=== PATIENT | female | born 1960 | race Caucasian/White ===

== ENCOUNTER → 2017-01-04 | Outpatient (CLI) | payer MEDICARE, OTHER ==
--- NOTE | 2017-01-05 12:12 | MM ---
Reason for exam: screening (asymptomatic). Last mammogram was performed 1 year and 4 months ago. History: Patient is postmenopausal and is nulliparous. Physical Findings: A clinical breast exam by your physician is recommended on an annual basis and results should be correlated with mammographic findings. MG 3D Screening Mammo W/Cad Bilateral CC and MLO view(s) were taken. Prior study comparison: August 26, 2015, bilateral MG screening mammo w CAD. August 08, 2014, mammogram, performed at [facility]. The breast tissue is heterogeneously dense. This may lower the sensitivity of mammography. Developing asymmetry in the left upper outer quadrant. This finding is changed when compared with previous exams. ASSESSMENT: Incomplete: need additional imaging evaluation, BI-RAD 0 RECOMMENDATION: Special view mammogram of the left breast. If lesion persists on supplemental views, image directed ultrasound is recommended. [facility] will attempt to contact patient to return for supplemental views and ultrasound if indicated.
== END | disposition home or self-care (01) ==
LOC: RADMAMWWP 12:52
PROVIDERS: ATTEND Family Medicine
DX: Z12.31 Encounter for screening mammogram for malignant neoplasm of breast (principal); R92.2 Inconclusive mammogram
CPT/HCPCS: 77063; G0202

== ENCOUNTER → 2017-01-11 | Outpatient (CLI) | payer MEDICARE, OTHER ==
--- NOTE | 2017-01-11 11:11 | MM ---
Reason for exam: additional evaluation requested from abnormal screening. Last mammogram was performed less than 1 month ago. History: Patient is postmenopausal and is nulliparous. Physical Findings: Nurse did not find any significant physical abnormalities on exam. MG 3D Work Up W/Cad LT ML, spot compression MLO, and spot compression CC view(s) were taken of the left breast. Prior study comparison: January 04, 2017, bilateral MG 3d screening mammo w/cad. August 26, 2015, bilateral MG screening mammo w CAD. The breast tissue is heterogeneously dense. This may lower the sensitivity of mammography. Asymmetric breast tissue in the left breast 5.4cm from nipple upper half position. These results were verbally communicated with the patient and result sheet given to the patient on 01/11/17. ASSESSMENT: Incomplete: need additional imaging evaluation, BI-RAD 0 RECOMMENDATION: Ultrasound of the left breast.
--- NOTE | 2017-01-11 11:14 | USB ---
Reason for exam: additional evaluation requested from abnormal screening. History: Patient is postmenopausal and is nulliparous. US Breast Workup Limited LT Left breast ultrasound indicates ductal estasia. These results were verbally communicated with the patient and result sheet given to the patient on 01/11/17. ASSESSMENT: Negative, BI-RAD 1 RECOMMENDATION: Routine screening mammogram of both breasts in 1 year.
== END | disposition home or self-care (01) ==
LOC: RADMAMWWP 07:56
PROVIDERS: ATTEND Family Medicine
DX: R92.2 Inconclusive mammogram (principal); R92.8 Other abnormal and inconclusive findings on diagnostic imaging of breast
CPT/HCPCS: 76642; G0206; G0279

== ENCOUNTER → 2018-03-11 | Outpatient (CLI) | payer MEDICARE, OTHER ==
--- NOTE | 2018-03-12 13:50 | MM ---
Reason for exam: screening (asymptomatic). Last mammogram was performed 1 year and 2 months ago. History: Patient is postmenopausal and is nulliparous. Physical Findings: A clinical breast exam by your physician is recommended on an annual basis and results should be correlated with mammographic findings. MG 3D Screening Mammo W/Cad Bilateral CC and MLO view(s) were taken. Prior study comparison: January 11, 2017, left breast MG 3d work up w/cad LT. January 04, 2017, bilateral MG 3d screening mammo w/cad. There are scattered fibroglandular densities. No significant changes when compared with prior studies. ASSESSMENT: Benign, BI-RAD 2 RECOMMENDATION: Routine screening mammogram of both breasts in 1 year.
== END | disposition home or self-care (01) ==
LOC: RADMAMWWP 16:22
PROVIDERS: ATTEND Internal Medicine
DX: Z12.31 Encounter for screening mammogram for malignant neoplasm of breast (principal)
CPT/HCPCS: 77063; 77067

== ENCOUNTER 2019-03-21 12:31 | Emergency (ER) | payer MEDICARE, OTHER ==
[2019-03-21 12:36] VITALS: RESP 18
[2019-03-21] MEDS ORDERED: DIPH,PERTUS(ACELL)TETVAC-LF 0.5 ML VIAL IM ONE (12:49)
[2019-03-21] MEDS ORDERED: LIDOCAINE 1%-EPI 1:100,000 20 ML VIAL SQ STA (12:49)
--- NOTE | 2019-03-21 12:56 | ED ---
General Adult HPI - General Chief complaint: Wound/Laceration Stated complaint: Fall, head laceration Time Seen by Provider: 03/21/19 12:38 Source: patient Mode of arrival: ambulatory Limitations: no limitations - History of Present Illness Initial comments: Dictation was produced using [employer] dictation software. please excuse any gram matical, word or spelling errors. Chief Complaint: 59-year-old feel presents with knee pain and head pain after fall. History of Present Illness: Denies fever she was walking outside when she tripped over a twig. She fell forward striking her left anterior knee and hitting her head. Straight to get herself however was unlikely. She noted some bleeding to her head. Patient also complains of mild The ROS documented in this emergency department record has been reviewed and confirmed by me. Those systems with pertinent positive or negative responses have been documented in the HPI. All other systems are other negative and/or noncontributory. PHYSICAL EXAM: General Impression: Alert and oriented x3, not in acute distress HEENT: 2 cm laceration to the left anterior forehead, extra-ocular movements intact, pupils equal and reactive to light bilaterally, mucous membranes moist. Cardiovascular: Heart regular rate and rhythm, S1&S2 audible, no murmurs, rubs or gallops Chest: Lungs clear to auscultation bilaterally, no rhonchi, no wheeze, no rales Abdomen: Bowel sounds present, abdomen soft, non-tender, non-distended, no organomegaly Musculoskeletal: Pulses present and equal in all extremities, no peripheral edema, superficial abrasion to the left anterior knee Motor: no focal deficits noted Neurological: CN II-XII grossly intact, no focal motor or sensory deficits noted Skin: Intact with no visualized rashes Psych: Normal affect and mood ED course: 59-year-old female with head laceration and knee contusion after mechanical fall. All signs upon arrival are within acceptable limits. Basic labs obtained. Labs are unremarkable. Computed tomography scan of the head and C-spine is negative. X-rays negative. Tetanus was updated. Laceration was repaired at bedside. Please see laceration repair note. Patient reevaluated stable medical condition. Patient does not have any headache or neurologic issues. She clear for discharge patient told to come back in 3-5 days for suture removal. Temperature is discussed. Patient agreeable with discharge. - Related Data Home Medications Medication Instructions Recorded Confirmed Benazepril HCl 5 mg PO DAILY 02/01/17 03/21/19 Cholecalciferol (Vitamin D3) 5,000 units PO DAILY 02/01/17 03/21/19 [Vitamin D3] Simvastatin 80 mg PO HS 02/01/17 03/21/19 Diclofenac Sodium [Voltaren] 50 mg PO BID 03/21/19 03/21/19 Insulin Aspart [NovoLOG Flexpen] 5 units SQ DIRECTED PRN 03/21/19 03/21/19 Insulin Aspart [NovoLOG Flexpen] 18 units SQ AC-BRKFST 03/21/19 03/21/19 Insulin Degludec [Tresiba 43 units SQ QAM 03/21/19 03/21/19 Flextouch U-100] Metoprolol Tartrate 25 mg PO DAILY 03/21/19 03/21/19 buPROPion HCL [Wellbutrin XL] 300 mg PO DAILY 03/21/19 03/21/19 cloZAPine [Clozaril] 25 mg PO HS 03/21/19 03/21/19 metFORMIN HCL 1,000 mg PO BID 03/21/19 03/21/19 Allergies Allergy/AdvReac Type Severity Reaction Status Date / Time Penicillins Allergy Swelling Verified 03/21/19 13:12 Review of Systems ROS Statement: Those systems with pertinent positive or pertinent negative responses have been documented in the HPI. ROS Other: All systems not noted in ROS Statement are negative. Past Medical History Past Medical History: Diabetes Mellitus, Hypertension, Osteoarthritis (OA), Thyroid Disorder History of Any Multi-Drug Resistant Organisms: None Reported Past Surgical History: No Surgical Hx Reported Past Psychological History: Schizoaffective Disorder Smoking Status: Former smoker Past Alcohol Use History: None Reported Past Drug Use History: None Reported General Exam Limitations: no limitations Course Vital Signs 03/21/19 12:34 Temperature 98.4 F Pulse Rate 99 Respiratory 18 Rate Blood Pressure 135/78 O2 Sat by Pulse 99 Oximetry Procedures - Laceration Laceration #1 Consent Obtained: verbal consent Indication: laceration Site: scalp Description: linear (2 cm) Depth: simple, single layer Anesthetic Used: lidocaine 1%, with epi Anesthesia Technique: local infiltration Amount (mls): 2 Pre-repair: wound explored, irrigated extensively Type of Sutures: nylon Size of Sutures: 6-0 Number of Sutures: 6 Technique: simple, interrupted Patient Tolerated Procedure: well Medical Decision Making - Lab Data Result diagrams: 03/21/19 13:10 03/21/19 13:10 Lab Results 03/21/19 03/21/19 03/21/19 Range/Units 13:10 13:10 13:10 WBC 8.9 (3.8-10.6) k/uL RBC 4.17 (3.80-5.40) m/uL Hgb 12.1 (11.4-16.0) gm/dL Hct 38.9 (34.0-46.0) % MCV 93.2 (80.0-100.0) fL MCH 29.1 (25.0-35.0) pg MCHC 31.2 (31.0-37.0) g/dL RDW 14.4 (11.5-15.5) % Plt Count 301 (150-450) k/uL Neutrophils % 69 % Lymphocytes % 16 % Monocytes % 5 % Eosinophils % 8 % Basophils % 1 % Neutrophils # 6.1 (1.3-7.7) k/uL Lymphocytes # 1.4 (1.0-4.8) k/uL Monocytes # 0.5 (0-1.0) k/uL Eosinophils # 0.7 (0-0.7) k/uL Basophils # 0.0 (0-0.2) k/uL PT 10.2 (9.0-12.0) sec INR 0.9 (<1.2) APTT 23.7 (22.0-30.0) sec Sodium 140 (137-145) mmol/L Potassium 4.7 (3.5-5.1) mmol/L Chloride 104 (98-107) mmol/L Carbon Dioxide 26 (22-30) mmol/L Anion Gap 10 mmol/L BUN 34 H (7-17) mg/dL Creatinine 0.91 (0.52-1.04) mg/dL Est GFR (CKD-EPI)AfAm 80 (>60 ml/min/1.73 sqM) Est GFR (CKD-EPI)NonAf 69 (>60 ml/min/1.73 sqM) Glucose 131 H (74-99) mg/dL Calcium 9.9 (8.4-10.2) mg/dL Disposition Clinical Impression: Laceration, Knee contusion, Fall Disposition: HOME SELF-CARE Condition: Good Instructions (If sedation given, give patient instructions): Laceration (ED), Care For Your Stitches (DC) Is patient prescribed a controlled substance at d/c from ED?: No Referrals: [facility] [Primary Care Provider] - 1-2 days Time of Disposition: 13:57
[2019-03-21 13:23] LABS: Basophils % (A) 1 %; Eosinophils # (A) 0.7 k/uL (0-0.7); Eosinophils % (A) 8 %; HCT 38.9 % (34.0-46.0); HGB 12.1 gm/dL (11.4-16.0); Lymphocytes # (A) 1.4 k/uL (1.0-4.8); Lymphocytes % (A) 16 %; MCH 29.1 pg (25.0-35.0); MCHC 31.2 g/dL (31.0-37.0); MCV 93.2 fL (80.0-100.0); Mean Platelet Volume 6.5; Monocytes # (A) 0.5 k/uL (0-1.0); Monocytes % (A) 5 %; Neutrophils # (A) 6.1 k/uL (1.3-7.7); Neutrophils % (A) 69 %; Platelet Count 301 k/uL (150-450); RBC 4.17 m/uL (3.80-5.40); RDW 14.4 % (11.5-15.5); WBC 8.9 k/uL (3.8-10.6)
--- NOTE | 2019-03-21 13:30 | XR ---
EXAMINATION TYPE: XR knee 4V LT DATE OF EXAM: 03/21/2019 COMPARISON: NONE HISTORY: Pain TECHNIQUE: Four views are submitted. FINDINGS: Diffuse osteopenia with chondrocalcinosis and severe narrowing the joint spaces with hypertrophic spu rring. Vascular calcification seen. No acute fracture. IMPRESSION: 1. Severe arthropathy correlate for osteoarthritis or depositional arthropathy.
--- NOTE | 2019-03-21 13:32 | CT ---
EXAMINATION TYPE: CT brain karo wo con DATE OF EXAM: 03/21/2019 COMPARISON: None HISTORY: Fall today with Left supra orbital region. CT DLP: 1515.9 mGycm, Automated exposure control for dose reduction was used. CONTRAST: Patient injected with 0 mL of Isovue 300. CT of the brain is performed utilizing 3 mm thick sections through the posterior fossa and 3 mm thick sections through the remaining calvarium. Study is performed within 24 hours of arrival to the hospital. No abnormal hyperdensity is present to suggest an acute intracranial hemorrhage. No mass lesion is evident. No acute infarcts are evident. Ventricles and sulci are prominent for the patient age. Paranasal sinuses and mastoid air cells within the [id number] are clear. IMPRESSIONS: 1. Age-related atrophy CT cervical spine. COMPARISON: None CT of the cervical spine is performed in the axial plane at 2 mm thick sections. Reconstructed image s in the coronal, and sagittal plane are reviewed on the computer. No acute fractures are evident. Spina bifida occulta of C1 is present, normal variant. Vertebral body alignment is normal. There is diffuse disc space narrowing through the mid and lower cervical spine. Vertebral body heights are preserved. Multilevel endplate spurring is present throughout the cervical spine. Uncovertebral joint hypertrophy is present with some moderate narrowing on the left at C4-5. Endplate spurring is present with mild anterior thecal sac impression. IMPRESSIONS: 1. No acute osseous abnormality. 2. Degenerative disc changes with endplate spurring. 3. Moderate foraminal narrowing left C4-5 from uncovertebral joint hypertrophy.
[2019-03-21 13:33] LABS: INR 0.9 (<1.2); Partial Thromboplastin Time 23.7 sec (22.0-30.0); Prothrombin Time 10.2 sec (9.0-12.0)
[2019-03-21 13:42] LABS: Calcium 9.9 mg/dL (8.4-10.2); Potassium 4.7 mmol/L (3.5-5.1)
[2019-03-21 14:29] VITALS: BP 151/84; PULSE 77; TEMP 98
== END 2019-03-21 14:20 | disposition home or self-care (01) ==
LOC: EC 12:31
DX: S01.81XA Laceration without foreign body of other part of head, initial encounter (principal); S80.02XA Contusion of left knee, initial encounter; E11.9 Type 2 diabetes mellitus without complications; I10 Essential (primary) hypertension; M19.90 Unspecified osteoarthritis, unspecified site; F25.9 Schizoaffective disorder, unspecified; Z87.891 Personal history of nicotine dependence; Z88.0 Allergy status to penicillin; Z79.1 Long term (current) use of non-steroidal anti-inflammatories (NSAID); Z79.4 Long term (current) use of insulin; Z79.899 Other long term (current) drug therapy; W01.0XXA Fall on same level from slipping, tripping and stumbling without subsequent striking against object, initial encounter; Y93.01 Activity, walking, marching and hiking; Y92.480 Sidewalk as the place of occurrence of the external cause
CPT/HCPCS: 12011; 36415; 70450; 72125; 80048; 85025; 85610; 85730; 90471; 90715; 99284

== ENCOUNTER → 2020-10-18 | Outpatient (CLI) | payer MEDICARE, OTHER ==
--- NOTE | 2020-10-18 11:54 | XR ---
Cervical spine HISTORY: Neck pain 6 views of the cervical spine There is multilevel spondylosis. Cervical vertebral bodies show preserved height, alignment, bone min eralization mildly reduced. There is some mild loss of disc height present at C3-4, loss of disc heig ht also present at C6-7. C7-T1 not well seen. Prevertebral soft tissues are normal. There are facet a rthropathy changes. Oblique images show foraminal encroachment on the right at C3-4 and C6-7, C7-T1 a nd on the left at the lower levels the foramina are not well seen. Odontoid view is limited. Suspect atherosclerotic vascular calcifications in the carotid artery distribution. IMPRESSION: Degenerative disc disease and facet arthropathy.
--- NOTE | 2020-10-18 11:58 | XR ---
Left shoulder HISTORY: Pain, numbness 3 views of left shoulder Bone mineralization, joint spaces and alignment are maintained. Suspect some soft tissue calcificatio ns are present. No fracture or dislocation. Left lung apex as visualized is normal. Some mild spurrin g suspected at the glenohumeral joint. There is arthropathy at the acromioclavicular joint. IMPRESSION: There is abnormal soft tissue calcification present, correlate for hypercalcemic states, that could be calcific tendinitis, crystal deposition arthropathy
== END | disposition home or self-care (01) ==
LOC: RADXRMAIN 09:43
PROVIDERS: ATTEND Nurse Practitioner
DX: M50.30 Other cervical disc degeneration, unspecified cervical region (principal); M47.812 Spondylosis without myelopathy or radiculopathy, cervical region; M75.32 Calcific tendinitis of left shoulder; M19.012 Primary osteoarthritis, left shoulder
CPT/HCPCS: 72050

== ENCOUNTER 2021-03-24 14:40 | Inpatient (IN) | payer MEDICARE, OTHER ==
--- NOTE | 2021-03-24 16:59 | ED ---
General Adult HPI - General Chief complaint: Wound/Laceration Stated complaint: Bone Infection Time Seen by Provider: 03/24/21 16:49 Source: patient Mode of arrival: wheelchair Limitations: no limitations - History of Present Illness Initial comments: Dictation was produced using [employer] dictation software. please excuse any grammatical, word or spelling errors. Chief Complaint: 61-year-old female sent from wound care for possible os teomyelitis History of Present Illness: 61-year-old female with history of diabetic wound to her left foot. She states that she had a cast was applied by wound care clinic that was stated on for a week. He took the cast off today noticed that her left great toe looks significantly worse and erythematous. They're concerned of osteomyelitis sent her to the emergency department to be admitted. Patient complains of pain to the left toe. Denies any constitutional symptoms. The ROS documented in this emergency department record has been reviewed and confirmed by me. Those systems with pertinent positive or negative responses have been documented in the HPI. All other systems are other negative and/or noncontributory. PHYSICAL EXAM: General Impression: Alert and oriented x3, not in acute distress HEENT: Normocephalic atraumatic, extra-ocular movements intact, pupils equal and reactive to light bilaterally, mucous membranes moist. Cardiovascular: Heart regular rate and rhythm Chest: Able to complete full sentences, no retractions, no tachypnea Abdomen: abdomen soft, non-tender, non-distended, no organomegaly Musculoskeletal: Pulses present and equal in all extremities, no peripheral edema Motor: no focal deficits noted Neurological: CN II-XII grossly intact, no focal motor or sensory deficits noted Skin: Intact with no visualized rashes Left foot: Erythematous, purulent drainage coming from the tip of the left toe, palpable tenderness. Psych: Normal affect and mood ED course: 61-year-old female sent from wound care clinic for worsening infection to left toe. There does appear to be probing wound signs upon arrival are within acceptable limits. There is significant erythema to the left great toe. Labs evaluation obtained. CBC unremarkable. Metabolic panel shows BUN 33. Glucose of 41. Patient given oral glucose. Glucose levels will be monitored. Foot x-ray shows osteomyelitis. Patient started on vancomycin and cefepime. Patient be admitted with consultation to infectious disease. - Related Data Home Medications Medication Instructions Recorded Confirmed Benazepril HCl 10 mg PO HS 07/13/17 09/02/21 Diclofenac Sodium [Voltaren] 50 mg PO BID 03/21/19 03/24/21 Insulin Aspart [NovoLOG Flexpen] 5 units SQ DIRECTED PRN 03/21/19 03/24/21 Insulin Aspart [NovoLOG Flexpen] 15 units SQ AC-BRKFST 03/21/19 03/24/21 Insulin Degludec [Tresiba 40 units SQ DAILY 03/21/19 03/24/21 Flextouch U-100 Pen] Metoprolol Tartrate 25 mg PO DAILY 03/21/19 03/24/21 buPROPion HCL [Wellbutrin XL] 300 mg PO DAILY 03/21/19 03/24/21 cloZAPine [Clozaril] 25 mg PO HS 03/21/19 03/24/21 Ascorbic Acid [Vitamin C] 1,000 mg PO DAILY 03/24/21 03/24/21 Calcium Carbonate [Calcium] 600 mg PO BID 03/24/21 03/24/21 Cyanocobalamin (Vitamin B-12) 1,000 mcg PO BID 03/24/21 03/24/21 [Vitamin B-12] Multivitamins, Thera [Multivitamin 1 tab PO DAILY 03/24/21 03/24/21 (formulary)] Thiamine HCl [Vitamin B-1] 100 mg PO DAILY 03/24/21 03/24/21 Allergies Allergy/AdvReac Type Severity Reaction Status Date / Time Penicillins Allergy Swelling Verified 03/24/21 17:28 Review of Systems ROS Statement: Those systems with pertinent positive or pertinent negative responses have been documented in the HPI. ROS Other: All systems not noted in ROS Statement are negative. Past Medical History Past Medical History: Diabetes Mellitus, Hypertension, Osteoarthritis (OA), Thyroid Disorder History of Any Multi-Drug Resistant Organisms: None Reported Past Surgical History: No Surgical Hx Reported Past Psychological History: Schizoaffective Disorder, Schizophrenia Smoking Status: Never smoker Past Alcohol Use History: None Reported Past Drug Use History: None Reported General Exam Limitations: no limitations Course Vital Signs 03/24/21 03/24/21 16:29 18:32 Temperature 98.1 F 98.1 F Pulse Rate 64 69 Respiratory 18 18 Rate Blood Pressure 124/85 140/76 O2 Sat by Pulse 99 99 Oximetry Medical Decision Making - Lab Data Result diagrams: 03/24/21 18:37 03/24/21 18:37 Lab Results 03/24/21 03/24/21 03/24/21 Range/Units 18:37 18:37 18:37 WBC 9.4 (3.8-10.6) k/uL RBC 4.18 (3.80-5.40) m/uL Hgb 12.6 (11.4-16.0) gm/dL Hct 37.8 (34.0-46.0) % MCV 90.5 (80.0-100.0) fL MCH 30.2 (25.0-35.0) pg MCHC 33.4 (31.0-37.0) g/dL RDW 14.1 (11.5-15.5) % Plt Count 421 (150-450) k/uL MPV 6.2 Neutrophils % 74 % Lymphocytes % 11 % Monocytes % 6 % Eosinophils % 4 % Basophils % 1 % Neutrophils # 6.9 (1.3-7.7) k/uL Lymphocytes # 1.1 (1.0-4.8) k/uL Monocytes # 0.6 (0-1.0) k/uL Eosinophils # 0.4 (0-0.7) k/uL Basophils # 0.1 (0-0.2) k/uL Sodium 139 (137-145) mmol/L Potassium 4.6 (3.5-5.1) mmol/L Chloride 106 (98-107) mmol/L Carbon Dioxide 23 (22-30) mmol/L Anion Gap 10 mmol/L BUN 33 H (7-17) mg/dL Creatinine 0.89 (0.52-1.04) mg/dL Est GFR (CKD-EPI)AfAm 81 (>60 ml/min/1.73 sqM) Est GFR (CKD-EPI)NonAf 70 (>60 ml/min/1.73 sqM) Glucose 41 L* (74-99) mg/dL Plasma Lactic Acid Julius 1.2 (0.7-2.0) mmol/L Calcium 10.2 (8.4-10.2) mg/dL Disposition Clinical Impression: Osteomyelitis Disposition: ADMITTED IP TO THIS HOSP Condition: Fair Referrals: [facility] [Primary Care Provider] - 1-2 days
[2021-03-24 19:04] LABS: Basophils # (A) 0.1 k/uL (0-0.2); Basophils % (A) 1 %; Eosinophils # (A) 0.4 k/uL (0-0.7); Eosinophils % (A) 4 %; HCT 37.8 % (34.0-46.0); HGB 12.6 gm/dL (11.4-16.0); Lymphocytes # (A) 1.1 k/uL (1.0-4.8); Lymphocytes % (A) 11 %; MCH 30.2 pg (25.0-35.0); MCHC 33.4 g/dL (31.0-37.0); MCV 90.5 fL (80.0-100.0); Mean Platelet Volume 6.2; Monocytes # (A) 0.6 k/uL (0-1.0); Monocytes % (A) 6 %; Neutrophils # (A) 6.9 k/uL (1.3-7.7); Neutrophils % (A) 74 %; Platelet Count 421 k/uL (150-450); RBC 4.18 m/uL (3.80-5.40); RDW 14.1 % (11.5-15.5); WBC 9.4 k/uL (3.8-10.6)
[2021-03-24 19:13] LABS: Calcium 10.2 mg/dL (8.4-10.2); Potassium 4.6 mmol/L (3.5-5.1)
[2021-03-24] MEDS ORDERED: VANCOMYCIN IV PER PHARMACY 1 EACH MISC MISCELLANE PRN (19:39)
[2021-03-24] MEDS ORDERED: CEFEPIME 2 GM in SODIUM CHLORIDE 0.9% 100 ML IVPB STA (19:40)
--- NOTE | 2021-03-24 19:41 | XR ---
PROCEDURE: XR foot complete LT - 3V DATE AND TIME: 03/24/2021 7:08 PM CLINICAL INDICATION: [facility]; suspect osteomyelitis TECHNIQUE: Department protocol COMPARISON: None FINDINGS: There is no fracture or malalignment. There is marked soft tissue swelling circumferentially to the distal phalanx of the great toe. There is multifocal osteopenia involving the tuft of the distal phalanx of the great toe, features consiste nt with osteomyelitis. There is no associated soft tissue emphysema. No associated radiopaque foreign bodies. There is no radiographic evidence of involvement of the great toe interphalangeal joint. Remainder of the bones and soft tissues are unremarkable, save for multifocal moderate joint changes. IMPRESSION: Osteomyelitis involving the tuft of the distal phalanx of the great toe.
[2021-03-24] MEDS ORDERED: NALOXONE 0.4 MG/ML 1 ML VIAL IV PRN (19:44)
[2021-03-24] MEDS ORDERED: VANCOMYCIN 1,500 MG in SODIUM CHLORIDE 0.9% 250 ML IVPB STA (19:49)
[2021-03-24] MEDS: SODIUM CHLORIDE 0.9% 1,000 ML IV SCH (20:02)
[2021-03-24 20:55] LABS: Glucose,Whole Blood 101 mg/dL (75-99)
[2021-03-24] MEDS ORDERED: INSULIN ASPART (NovoLOG) 100 UNIT/ML VIAL SQ PRN (22:00)
[2021-03-24 22:04] LABS: Glucose,Whole Blood 85 mg/dL (75-99)
[2021-03-24] MEDS: lisinopriL 10 MG TAB PO SCH (23:15)
[2021-03-25 00:19] LABS: Glucose,Whole Blood 136 mg/dL (75-99)
[2021-03-25 02:08] LABS: Glucose,Whole Blood 86 mg/dL (75-99)
[2021-03-25 04:15] LABS: Glucose,Whole Blood 110 mg/dL (75-99)
[2021-03-25 05:52] LABS: Glucose,Whole Blood 88 mg/dL (75-99)
[2021-03-25 06:18] LABS: HCT 36.2 % (34.0-46.0); HGB 11.6 gm/dL (11.4-16.0); Hypochromasia Slight; MCH 29.4 pg (25.0-35.0); MCHC 31.9 g/dL (31.0-37.0); MCV 92.2 fL (80.0-100.0); Mean Platelet Volume 6.6; Platelet Count 343 k/uL (150-450); RBC 3.93 m/uL (3.80-5.40); RDW 14.4 % (11.5-15.5); WBC 7.6 k/uL (3.8-10.6)
[2021-03-25 06:39] LABS: ALT 17 U/L (4-34); AST 24 U/L (14-36); African American GFR (CKD) >90 (>60 ml/min/1.73 sqM); Albumin 3.5 g/dL (3.5-5.0); Albumin/Globulin Ratio 1.3; Alkaline Phosphatase 75 U/L (38-126); Anion Gap 6 mmol/L; Blood Urea Nitrogen 22 mg/dL (7-17); Calcium 9.5 mg/dL (8.4-10.2); Carbon Dioxide 25 mmol/L (22-30); Chloride 106 mmol/L (98-107); Globulin 2.7 g/dL; Glucose 89 mg/dL (74-99); Non-African American GFR(CKD) 86 (>60 ml/min/1.73 sqM); Potassium 5.1 mmol/L (3.5-5.1); Sodium 137 mmol/L (137-145); Total Bilirubin 0.1 mg/dL (0.2-1.3); Total Protein 6.2 g/dL (6.3-8.2)
[2021-03-25] MEDS ORDERED: INSULIN ASPART (NovoLOG) 100 UNIT/ML VIAL SQ SCH ×2 (07:30)
[2021-03-25 08:04] LABS: Glucose,Whole Blood 112 mg/dL (75-99)
[2021-03-25] MEDS: PANTOPRAZOLE 40 MG TABLET PO SCH (08:35)
[2021-03-25] MEDS: VANCOMYCIN 1,500 MG in SODIUM CHLORIDE 0.9% 250 ML IVPB SCH ×2 (08:36→21:19)
[2021-03-25] MEDS: ASCORBIC ACID 500 MG TAB PO SCH (08:38)
[2021-03-25] MEDS: buPROPion XL 300 MG TAB.ER.24H PO SCH (08:38)
[2021-03-25] MEDS: CALCIUM CARBONATE 500 MG CHEWABLE PO SCH ×2 (08:39→21:21)
[2021-03-25] MEDS: ENOXAPARIN 40 MG/0.4 ML SYRINGE SQ SCH (08:40)
[2021-03-25] MEDS: CYANOCOBALAMIN 500 MCG TAB PO SCH ×2 (08:40→21:21)
[2021-03-25] MEDS: ETODOLAC 200 MG CAPSULE PO SCH ×2 (08:41→21:20)
[2021-03-25] MEDS: METOPROLOL TARTRATE 25 MG TAB PO SCH (08:42)
[2021-03-25] MEDS: MULTIVITAMINS, THERA 1 EACH TAB PO SCH (08:43)
[2021-03-25] MEDS: THIAMINE 100 MG TAB PO SCH (08:44)
[2021-03-25] MEDS ORDERED: INSULIN DETEMIR (LEVEMIR) 100 UNIT/ML SYR SQ SCH (09:00)
[2021-03-25] MEDS: INSULIN DETEMIR (LEVEMIR) 100 UNIT/ML SYR SQ SCH (09:58)
[2021-03-25 10:10] LABS: Glucose,Whole Blood 83 mg/dL (75-99)
--- NOTE | 2021-03-25 10:39 | P.CONS ---
History of Present Illness - Reason for Consult Consult date: 03/25/21 Wound care - History of Present Illness This is a 61-year-old patient known to the wound care center who was seen yesterday in wound care and was found to have worsening of her left great toe ulceration. Patient was previously and a total contact cast which she was tolerating well. Patient had a deep tissue culture on 811 that was positive and was treated with oral antibiotics. She then had a bone culture obtained last week which was positive again. At this time we are working patient up for hyperbaric therapy but due to the worsening of the ulceration she was directed to go to the emergency department for evaluation. The wound is currently classified as a Grade 2 wound with etiology of Diabetic Wound/Ulcer of the Lower Extremity and is located on the Left,Anterior Toe Great. The wound measures 2.1cm length x 2.6cm width x 0.7cm depth; 4.288cm^2 area and 3.002cm^3 volume. There is bone, Fat Layer (Subcutaneous Tissue), and fascia exposed. There is no tunneling or undermining noted. There is a medium amount of serosanguineous drainage noted. The wound margin is thickened. There is medium (34-66%) pink gr anulation within the wound bed. There is a medium (34-66%) amount of necrotic tissue within the wound bed including Adherent Slough. The periwound skin appearance exhibited: Callus, Scarring, Erythema. The periwound skin appearance did not exhibit: Crepitus, Excoriation, Induration, Rash, Dry/Scaly, Maceration, Atrophie Jada, Cyanosis, Ecchymosis, Hemosiderin Staining, Mottled, Pallor, Rubor. The surrounding wound skin color is noted with erythema which is circumferential. Periwound temperature was noted as No Abnormality. The periwound has tenderness on palpation. Review Of Systems: Constitutional: No fever, no chills, no night sweats. No weight change. No weakness, fatigue or lethargy. No daytime sleepiness. Integumentary:reports wounds, no lesions. No rash or pruritus. No unusual bruising. No change in hair or nails. Physical exam: General Appearance: Alert, cooperative, no distress, appears stated age. Skin: See HPI all other Skin color, texture, tugor normal, no rashes or lesions. Neurologic: Alert oriented x3 Assessment: 1. Diabetic foot ulcer 2. 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 Osteomyelitis Plan: 1.Apply absorptive silver, saline moistened gauze, dry gauze, rolled gauze secured with paper tape. Change Sunday. No weightbearing to the left forefoot. 2. next Wound care appointment is March 30 at 8:30 Thank you for the consultation any questions please contact the wound care center DNP note has been reviewed and discussed with Dr. Mims and the impression and plan of care has been directed as dictated. Past Medical History Past Medical History: Diabetes Mellitus, Hypertension, Osteoarthritis (OA), Thyroid Disorder History of Any Multi-Drug Resistant Organisms: None Reported Past Surgical History: No Surgical Hx Reported Past Psychological History: Schizoaffective Disorder, Schizophrenia Smoking Status: Never smoker Past Alcohol Use History: None Reported Past Drug Use History: None Reported Medications and Allergies Home Medications Medication Instructions Recorded Confirmed Type Benazepril HCl 10 mg PO HS 02/01/17 03/24/21 History Diclofenac Sodium [Voltaren] 50 mg PO BID 03/21/19 03/24/21 History Insulin Aspart [NovoLOG Flexpen] 5 units SQ DIRECTED PRN 03/21/19 03/24/21 History Insulin Aspart [NovoLOG Flexpen] 15 units SQ AC-BRKFST 03/21/19 03/24/21 History Insulin Degludec [Tresiba 40 units SQ DAILY 03/21/19 03/24/21 History Flextouch U-100 Pen] Metoprolol Tartrate 25 mg PO DAILY 03/21/19 03/24/21 History buPROPion HCL [Wellbutrin XL] 300 mg PO DAILY 03/21/19 03/24/21 History cloZAPine [Clozaril] 25 mg PO HS 03/21/19 03/24/21 History Ascorbic Acid [Vitamin C] 1,000 mg PO DAILY 03/24/21 03/24/21 History Calcium Carbonate [Calcium] 600 mg PO BID 03/24/21 03/24/21 History Cyanocobalamin (Vitamin B-12) 1,000 mcg PO BID 03/24/21 03/24/21 History [Vitamin B-12] Multivitamins, Thera [Multivitamin 1 tab PO DAILY 03/24/21 03/24/21 History (formulary)] Thiamine HCl [Vitamin B-1] 100 mg PO DAILY 03/24/21 03/24/21 History Allergies Allergy/AdvReac Type Severity Reaction Status Date / Time Penicillins Allergy Swelling Verified 03/24/21 17:28 Physical Exam Vitals: Vital Signs Temp Pulse Pulse Resp BP BP Pulse Ox 03/25/21 07:28 98.4 F 80 16 122/75 03/25/21 07:26 98.4 F 80 16 122/75 03/25/21 06:06 98.9 F 82 18 130/74 97 03/24/21 22:05 97.3 F L 74 16 166/88 99 03/24/21 18:32 98.1 F 69 18 140/76 99 03/24/21 16:29 98.1 F 64 18 124/85 99 Intake and Output 03/24/21 03/25/21 03/25/21 22:59 06:59 14:59 Intake Total 140 Balance 140 Intake: Intake, IV Titration 140 Amount Sodium Chloride 0.9% 1, 140 000 ml @ 20 mls/hr IV . Q24H [facility] Rx#:[id number] Other: Voiding Method Toilet # Voids 2 1 Weight 89.358 kg Results CBC & Chem 7: 03/25/21 05:44 03/25/21 05:44 Labs: Abnormal Lab Results - Last 24 Hours (Table) 03/24/21 03/24/21 03/25/21 Range/Units 18:37 20:53 00:16 BUN 33 H (7-17) mg/dL Glucose 41 L* (74-99) mg/dL POC Glucose (mg/dL) 101 H 136 H (75-99) mg/dL Total Bilirubin (0.2-1.3) mg/dL Total Protein (6.3-8.2) g/dL 03/25/21 03/25/21 03/25/21 Range/Units 04:14 05:44 07:58 BUN 22 H (7-17) mg/dL Glucose (74-99) mg/dL POC Glucose (mg/dL) 110 H 112 H (75-99) mg/dL Total Bilirubin 0.1 L (0.2-1.3) mg/dL Total Protein 6.2 L (6.3-8.2) g/dL Assessment and Plan (1) Diabetic foot ulcer Current Visit: Yes Status: Acute Code(s): E11.621 - TYPE 2 DIABETES MELLITUS WITH FOOT ULCER; L97.509 - NON-PRESSURE CHRONIC ULCER OTH PRT UNSP FOOT W UNSP SEVERITY SNOMED Code(s): 586102907 (2) Non-pressure chronic ulcer of other part of left foot with necrosis of bone Current Visit: Yes Status: Acute Code(s): L97.524 - NON-PRS CHRONIC ULCER OTH PRT LEFT FOOT W NECROSIS OF BONE SNOMED Code(s): 513836650 (3) Osteomyelitis Current Visit: Yes Status: Acute Code(s): M86.9 - OSTEOMYELITIS, UNSPECIFIED SNOMED Code(s): 44283361
[2021-03-25 12:19] LABS: Glucose,Whole Blood 145 mg/dL (75-99)
[2021-03-25] MEDS: INSULIN ASPART (NovoLOG) 100 UNIT/ML VIAL SQ SCH ×3 (12:23→21:20)
--- NOTE | 2021-03-25 14:08 | P.HPIM ---
History of Present Illness H&P Date: 03/25/21 HISTORY OF PRESENT ILLNESS This is a 61-year-[facility] with past medical history of diabetes mellitus type 2 insulin requiring, hypertension, depression, schizoaffective disorder. Patient has been following with the wound healing center regarding nonhealing wound to the left foot, diabetic ulcer. Patient states that she has a cast placed on each week and when she went back on she was noted to have had the cast rubbing on her left great toe and she was slowly sent to the emergency center for further evaluation and treatment with concern for osteomyelitis. Patient was found to be afebrile. Vital signs otherwise stable. CBC unremarkable. Electrolytes normal, BUN 33 creatinine 0.89. Blood sugar was 41 lactic acid 1.2. Foot x-ray showed osteomyelitis is involving the distal phalanx of the great toe this is on the left foot area and patient admitted to the [facility] floor, consult with Dr. Cooper. Patient is currently on vancomycin and received 1 dose of cefepime in the emergency center. Wound cultures to be obtained. She gives history of having IV antibiotics in 2009, details unknown. REVIEW OF SYSTEMS Constitutional: No fever, no chills, no night sweats. No weight change. No weakness, fatigue or lethargy. No daytime sleepiness. EENT: No headache. No blurred vision or double vision, no loss of vision. No loss of Hearing, no ringing in the ears, no dizziness. No nasal drainage or c ongestion. No epistaxis. No sore throat. Lungs: No shortness of breath, cough, no sputum production. No wheezing. Cardiovascular: No chest pain, no lower extremity edema. No palpitations. No paroxysmal nocturnal dyspnea. No orthopnea. No lightheadedness or dizziness. No syncopal episodes. Abdominal: No abdominal pain. No nausea, vomiting. No diarrhea. No constipation. No bloody or tarry stools.. No loss of appetite. Genitourinary: No dysuria, increased frequency, urgency. No urinary retention. Musculoskeletal: No myalgias. No muscle weakness, no gait dysfunction, no frequent falls. No back pain. No neck pain. Integumentary: Reported wounds, no lesions. No rash or pruritus. No unusual bruising. No change in hair or nails. Neurologic: No aphasia. No facial droop. No change in mentation. No head injury. No headache. No paralysis. No paresthesia. Psychiatric: No depression. No anxiety. No mood swings. Endocrine: Noted abnormal blood sugars. No weight change. No excessive sweating or thirst. No cold intolerance. SOCIAL HISTORY Patient is a lifelong nonsmoker, no illicit drug use, no alcohol use, no marijuana use. FAMILY HISTORY Mother is alive at age 82 with no major medical problems. Father at age 90 from old age. Patient has 2 brothers and 1 sister with no major medical problems. Patient does not have any children. PHYSICAL EXAMINATION Gen: This is a 61-year-old female. Patient is resting in bed appears to be comfortable and in no acute distress HEENT: Head is atraumatic, normocephalic. Pupils equal, round. Sclerae is anicteric. NECK: Supple. No JVD. No lymphadenopathy. No thyromegaly. LUNGS: Clear to auscultation. No wheezes or rhonchi. No intercostal retractions. HEART: Regular rate and rhythm. No murmur. ABDOMEN: Soft. Bowel sounds are present. No masses. No tenderness. EXTREMITIES: No pedal edema. No calf tenderness. NEUROLOGICAL: Patient is awake, alert and oriented x3. Cranial nerves 2 through 12 are grossly intact. ASSESSMENT AND PLAN 1. Diabetic foot wound to the left great toe with osteomyelitis. Consult with wound center for wound care, Dr. Cooper for antibiotics. Patient is currently on vancomycin. Recent wound culture was positive for MSSA. Repeat wound aerobic and anaerobic cultures to be obtained. 2. Diabetes mellitus type 2, uncontrolled with hypoglycemia. Patient's home dose of Levemir decreased to 30 units daily, scheduled NovoLog discontinued and continue NovoLog scale. 3. Hypertension. Continue lisinopril 10 mg daily, Lopressor 25 mg daily. 4. Recurrent depression, schizoaffective disorder. Continue Wellbutrin XL 300 mg daily, clozapine and 25 mg at bedtime. 5. GI prophylaxis. Protonix. 6. DVT prophylaxis. Lovenox subcu. Patient will be admitted to the hospital for a minimum of 2 night stay. DISCHARGE PLAN To be determined. Patient will require IV antibiotics at discharge. Impression and plan of care have been directed as dictated by the signing physician. Shantel Reynoso nurse practitioner acting as scribe for signing physician. Past Medical History Past Medical History: Diabetes Mellitus, Hypertension, Osteoarthritis (OA), Thyroid Disorder History of Any Multi-Drug Resistant Organisms: None Reported Past Surgical History: No Surgical Hx Reported Past Psychological History: Schizoaffective Disorder, Schizophrenia Smoking Status: Never smoker Past Alcohol Use History: None Reported Past Drug Use History: None Reported Medications and Allergies Home Medications Medication Instructions Recorded Confirmed Type Benazepril HCl 10 mg PO HS 02/01/17 03/24/21 History Diclofenac Sodium [Voltaren] 50 mg PO BID 03/21/19 03/24/21 History Insulin Aspart [NovoLOG Flexpen] 5 units SQ DIRECTED PRN 03/21/19 03/24/21 History Insulin Aspart [NovoLOG Flexpen] 15 units SQ AC-BRKFST 03/21/19 03/24/21 History Insulin Degludec [Tresiba 40 units SQ DAILY 03/21/19 03/24/21 History Flextouch U-100 Pen] Metoprolol Tartrate 25 mg PO DAILY 03/21/19 03/24/21 History buPROPion HCL [Wellbutrin XL] 300 mg PO DAILY 03/21/19 03/24/21 History cloZAPine [Clozaril] 25 mg PO HS 03/21/19 03/24/21 History Ascorbic Acid [Vitamin C] 1,000 mg PO DAILY 03/24/21 03/24/21 History Calcium Carbonate [Calcium] 600 mg PO BID 03/24/21 03/24/21 History Cyanocobalamin (Vitamin B-12) 1,000 mcg PO BID 03/24/21 03/24/21 History [Vitamin B-12] Multivitamins, Thera [Multivitamin 1 tab PO DAILY 03/24/21 03/24/21 History (formulary)] Thiamine HCl [Vitamin B-1] 100 mg PO DAILY 03/24/21 03/24/21 History Allergies Allergy/AdvReac Type Severity Reaction Status Date / Time Penicillins Allergy Swelling Verified 03/24/21 17:28 Physical Exam Vitals: Vital Signs Temp Pulse Pulse Resp BP BP Pulse Ox 03/25/21 07:28 98.4 F 80 16 122/75 03/25/21 07:26 98.4 F 80 16 122/75 03/25/21 06:06 98.9 F 82 18 130/74 97 03/24/21 22:05 97.3 F L 74 16 166/88 99 03/24/21 18:32 98.1 F 69 18 140/76 99 03/24/21 16:29 98.1 F 64 18 124/85 99 Intake and Output 03/24/21 03/25/21 03/25/21 22:59 06:59 14:59 Intake Total 140 Balance 140 Intake: Intake, IV Titration 140 Amount Sodium Chloride 0.9% 1, 140 000 ml @ 20 mls/hr IV . Q24H [facility] Rx#:[id number] Other: # Voids 2 1 Weight 89.358 kg Results CBC & Chem 7: 03/25/21 05:44 03/25/21 05:44 Labs: Abnormal Lab Results - Last 24 Hours (Table) 03/24/21 03/24/21 03/25/21 Range/Units 18:37 20:53 00:16 BUN 33 H (7-17) mg/dL Glucose 41 L* (74-99) mg/dL POC Glucose (mg/dL) 101 H 136 H (75-99) mg/dL Total Bilirubin (0.2-1.3) mg/dL Total Protein (6.3-8.2) g/dL 03/25/21 03/25/21 03/25/21 Range/Units 04:14 05:44 07:58 BUN 22 H (7-17) mg/dL Glucose (74-99) mg/dL POC Glucose (mg/dL) 110 H 112 H (75-99) mg/dL Total Bilirubin 0.1 L (0.2-1.3) mg/dL Total Protein 6.2 L (6.3-8.2) g/dL Thrombosis Risk Factor Assmnt - Choose All That Apply Any of the Below Risk Factors Present?: Yes Each Factor Represents 1 point: Obesity (BMI >25) Other Risk Factors: Yes Each Risk Factor Represents 2 Points: Age 61-74 years Thrombosis Risk Factor Assessment Total Risk Factor Score: 3 Thrombosis Risk Factor Assessment Level: Moderate Risk
[2021-03-25 14:43] LABS: Glucose,Whole Blood 109 mg/dL (75-99)
[2021-03-25 17:07] LABS: Glucose,Whole Blood 112 mg/dL (75-99)
[2021-03-25] MEDS ORDERED: cloZAPine 25 MG TAB PO SCH (21:00)
[2021-03-25] MEDS ORDERED: lisinopriL 10 MG TAB PO SCH (21:00)
[2021-03-25 21:15] LABS: Glucose,Whole Blood 147 mg/dL (75-99)
[2021-03-25] MEDS: cloZAPine 25 MG TAB PO SCH (21:21)
[2021-03-25] MEDS: lisinopriL 10 MG TAB PO SCH (21:21)
--- NOTE | 2021-03-25 22:35 | P.CONS ---
History of Present Illness - Reason for Consult Consult date: 03/25/21 left big toe osteomyelitis Requesting physician: Hernan Couch - Chief Complaint left big toe pain and worsenig wound x days - History of Present Illness History of present illness : Patient is a 61-year-old female who apparently did have injury to the right big toe tip few weeks ago with subsequent developing an ulcer on the tip of her left big toe for the patient has been initially evaluated by her career development counselor subsequently referred to the wound care center and has been under the care of Dr. Verde patient did have a culture was done on 02 March which grew MSSA Enterobacter and stenotrophomonas patient not sure Tracy bite she received for it and recently did have a repeat culture done on 16 March which is positive for MSSA patient local wound care has been total contact cast over the last few weeks patient mentions last time the cast was placed on she was having a lot of pain to the left big toe describing the pain to be throbbing to sharp 6-7 out of 10 and no radiation and when the cast was taken off her left big toe was swollen right and significant amount of infection for the patient was sent to [facility] ER on arrival to the ER the patient was afebrile patient did have a normal white count patient did have a x-rays of the left big toe which did shows osteomyelitis involving the tuft of the distal phalanx of the great toe patient has been started on vancomycin and admitted to hospital infectious disease was consulted for further management of antibiotic therapy Review of system: CONSTITUTIONAL: Positive for weakness however denies high-grade fever. EYES: No complaint. ENT: No complaint. RESPIRATORY: No complaint. CARDIOVASCULAR: No complaint. GENITOURINARY: No complaint. GASTROINTESTINAL: No complaint. MUSCULOSKELETAL: As per history of present illness. INTEGUMENTARY: As per history of present illness. PSYCHOLOGIC: No complaint. ENDOCRINE: No complaint. NEUROLOGIC: No complaint. Past medical history : Reviewed, documented below Past surgical history : Reviewed, documented below Social history: Reviewed, documented below Medications: Reviewed, as documented below GENERAL DESCRIPTION: Middle-aged female up in the chair, no distress. No tachypnea or accessory muscle of respiration use. HEENT: Shows Pallor , no scleral icterus. Oral mucous membrane is dry. NECK: Trachea central, no thyromegaly. LUNGS: Unlabored breathing. Clear to auscultation anteriorly. No wheeze or crackle. HEART: S1, S2, regular rate and rhythm. ABDOMEN: Soft, no tenderness , guarding or rigidity EXTREMITIES: No edema of feet. Left big toe tip did have a wound with slough tissue with significant surrounding swelling redness and drainage SKIN: No rash, no masses palpable. NEUROLOGICAL: The patient is awake, alert, oriented x3, mood and affect normal. LABS AND RADIOLOGY: Reviewed results see below Assessment : 1-Patient with her left big toe diabetic foot infection which started as a trauma now with worsening after the total contact cast application recent cultures were positive for MSSA and could be the likely pathogen with concern for osteomyelitis on the basis of the plain films, patient will need surgical debridement and deep cultures and antibiotic on the basis of those culture 2-penicillin allergy that would limit the number of antibiotics safe to use Plan: 1-we will obtain vascular surgery consult with Dr. Daniel for debridement of the wound and deep cultures 2-vancomycin pharmacy to dose her with a target trough of 15 while watching her kidney function and Vanco trough closely. 3-check a sed rate and a CRP We will follow on clinical condition and cultures to further adjust medication if needed Thank you for this consultation we will follow the patient along with you Past Medical History Past Medical History: Diabetes Mellitus, Hypertension, Osteoarthritis (OA), Thyroid Disorder History of Any Multi-Drug Resistant Organisms: None Reported Past Surgical History: No Surgical Hx Reported Past Psychological History: Schizoaffective Disorder, Schizophrenia Smoking Status: Never smoker Past Alcohol Use History: None Reported Past Drug Use History: None Reported Medications and Allergies Home Medications Medication Instructions Recorded Confirmed Type Benazepril HCl 10 mg PO HS 02/01/17 03/24/21 History Diclofenac Sodium [Voltaren] 50 mg PO BID 03/21/19 03/24/21 History Insulin Aspart [NovoLOG Flexpen] 5 units SQ DIRECTED PRN 03/21/19 03/24/21 History Insulin Aspart [NovoLOG Flexpen] 15 units SQ AC-BRKFST 03/21/19 03/24/21 History Insulin Degludec [Tresiba 40 units SQ DAILY 03/21/19 03/24/21 History Flextouch U-100 Pen] Metoprolol Tartrate 25 mg PO DAILY 03/21/19 03/24/21 History buPROPion HCL [Wellbutrin XL] 300 mg PO DAILY 03/21/19 03/24/21 History cloZAPine [Clozaril] 25 mg PO HS 03/21/19 03/24/21 History Ascorbic Acid [Vitamin C] 1,000 mg PO DAILY 03/24/21 03/24/21 History Calcium Carbonate [Calcium] 600 mg PO BID 03/24/21 03/24/21 History Cyanocobalamin (Vitamin B-12) 1,000 mcg PO BID 03/24/21 03/24/21 History [Vitamin B-12] Multivitamins, Thera [Multivitamin 1 tab PO DAILY 03/24/21 03/24/21 History (formulary)] Thiamine HCl [Vitamin B-1] 100 mg PO DAILY 03/24/21 03/24/21 History Allergies Allergy/AdvReac Type Severity Reaction Status Date / Time Penicillins Allergy Swelling Verified 03/24/21 17:28 Physical Exam Vitals: Vital Signs Temp Pulse Resp BP Pulse Ox 03/25/21 12:13 98.1 F 100 15 123/74 03/25/21 07:28 98.4 F 80 16 122/75 03/25/21 07:26 98.4 F 80 16 122/75 03/25/21 06:06 98.9 F 82 18 130/74 97 03/24/21 22:05 97.3 F L 74 16 166/88 99 Intake and Output 03/25/21 03/25/21 03/25/21 06:59 14:59 22:59 Intake Total 140 Balance 140 Intake: Intake, IV Titration 140 Amount Sodium Chloride 0.9% 1, 140 000 ml @ 20 mls/hr IV . Q24H [facility] Rx#:[id number] Other: Voiding Method Toilet # Voids 2 1 2 Results CBC & Chem 7: 03/25/21 05:44 03/25/21 05:44 Labs: Abnormal Lab Results - Last 24 Hours (Table) 03/25/21 03/25/21 03/25/21 Range/Units 00:16 04:14 05:44 BUN 22 H (7-17) mg/dL POC Glucose (mg/dL) 136 H 110 H (75-99) mg/dL Total Bilirubin 0.1 L (0.2-1.3) mg/dL Total Protein 6.2 L (6.3-8.2) g/dL 03/25/21 03/25/21 03/25/21 Range/Units 07:58 12:17 14:42 BUN (7-17) mg/dL POC Glucose (mg/dL) 112 H 145 H 109 H (75-99) mg/dL Total Bilirubin (0.2-1.3) mg/dL Total Protein (6.3-8.2) g/dL 03/25/21 03/25/21 Range/Units 17:04 21:13 BUN (7-17) mg/dL POC Glucose (mg/dL) 112 H 147 H (75-99) mg/dL Total Bilirubin (0.2-1.3) mg/dL Total Protein (6.3-8.2) g/dL Microbiology - Last 24 Hours (Table) 03/24/21 18:51 Blood Culture - Preliminary Blood No Growth after 24 hours
[2021-03-26] MEDS: SODIUM CHLORIDE 0.9% 1,000 ML IV SCH ×2 (05:25→12:39)
[2021-03-26 07:38] LABS: Glucose,Whole Blood 107 mg/dL (75-99)
[2021-03-26] MEDS: INSULIN ASPART (NovoLOG) 100 UNIT/ML VIAL SQ SCH ×4 (07:48→21:34)
[2021-03-26] MEDS ORDERED: LIDOCAINE 1% INJ 10MG/ML (20 ML MDV) SQ ONE (07:50)
[2021-03-26 08:25] LABS: C Reactive Protein 2.8 mg/dL (<1.0)
[2021-03-26] MEDS: VANCOMYCIN 1,500 MG in SODIUM CHLORIDE 0.9% 250 ML IVPB SCH ×2 (08:38→21:35)
[2021-03-26] MEDS: ENOXAPARIN 40 MG/0.4 ML SYRINGE SQ SCH (08:39)
[2021-03-26] MEDS: PANTOPRAZOLE 40 MG TABLET PO SCH (08:39)
[2021-03-26] MEDS: CYANOCOBALAMIN 500 MCG TAB PO SCH ×2 (08:39→21:35)
[2021-03-26] MEDS: INSULIN DETEMIR (LEVEMIR) 100 UNIT/ML SYR SQ SCH (08:39)
[2021-03-26] MEDS: THIAMINE 100 MG TAB PO SCH (08:39)
[2021-03-26] MEDS: ASCORBIC ACID 500 MG TAB PO SCH (08:39)
[2021-03-26] MEDS: METOPROLOL TARTRATE 25 MG TAB PO SCH (08:39)
[2021-03-26] MEDS: MULTIVITAMINS, THERA 1 EACH TAB PO SCH (08:40)
[2021-03-26] MEDS: ETODOLAC 200 MG CAPSULE PO SCH ×2 (08:40→21:34)
[2021-03-26] MEDS: CALCIUM CARBONATE 500 MG CHEWABLE PO SCH ×2 (08:40→21:34)
[2021-03-26] MEDS: buPROPion XL 300 MG TAB.ER.24H PO SCH (08:41)
[2021-03-26] MEDS: COLLAGENASE 250 UNIT/GM OINTMENT 30 GM TUBE TOPICAL SCH (10:08)
--- NOTE | 2021-03-26 11:39 | CONS ---
CONSULTATION This is a 61-year-old female. She came from the wound center with history of cast placed on the left foot big toe, which was infected. The patient was sent to the ER for further management. The patient has a history of diabetes and patient has been growing MRSA and Streptococcus Enterobacter, under care of Infectious Disease for IV antibiotic. I was consulted for wound debridement and deep culture. X-ray of the foot shows osteomyelitis of the left distal phalanx of the big toe. PHYSICAL EXAMINATION: Patient was seen in his room. NECK: Supple. No bruit appreciated. CHEST: Clear to auscultation. First and second sounds normal. ABDOMEN: Soft. Femoral and dorsal pedis is palpable. The left foot big toe has redness and open wound of the distal big toe phalanx and there was some necrotic tissue present. PLAN: We will do the wound debridement and send the deep culture for culture and sensitivity. Follow up with you. Thank you for this consultation. MMODL / IJN: [id number] /
--- NOTE | 2021-03-26 11:54 | OP ---
OPERATIVE REPORT PREOP DIAGNOSIS: Infected wound, left foot big toe POSTOP DIAGNOSIS: Infected wound, left foot big toe. OPERATION: Debridement of the wound, left foot big toe measurement is 3 x 3 cm, post debridement is 3 x 3 x 0.5. PROCEDURE: This patient was seen in the room. This patient had a total leg cast for wound on the big toe, got infected. The patient was admitted she has history of diabetes. Left foot was prepped and drapes applied in usual sterile manner. 1% lidocaine was infiltrated. Using a knife, we did the debridement of the big toe down to subcutaneous tissue and all the devitalized tissue was excised with knife. The tissue was sent for culture and sensitivity. There was some bleeding points which was controlled with hand cautery. Santyl cream applied to the wound and dressing was applied. Patient tolerated the procedure well. PLAN: Change the dressing daily with Santyl cream and also we noted there was marked redness of the big toe. MMODL / IJN: [id number] /
[2021-03-26 11:58] LABS: Glucose,Whole Blood 139 mg/dL (75-99)
--- NOTE | 2021-03-26 15:06 | P.PN ---
Subjective Progress Note Date: 03/26/21 HISTORY OF PRESENT ILLNESS This is a 61-year-old female patient at [facility] with past medical history of diabetes mellitus type 2 insulin requiring, hypertension, depression, schizoaffective disorder. Patient has been following with the wound healing center regarding nonhealing wound to the left foot, diabetic ulcer. Patient states that she has a cast placed on each week and when she went back on she was noted to have had the cast rubbing on her left great toe and she was slowly sent to the emergency center for further evaluation and treatment with concern for osteomyelitis. Patient was found to be afebrile. Vital signs otherwise stable. CBC unremarkable. Electrolytes normal, BUN 33 creatinine 0.89. Blood sugar was 41 lactic acid 1.2. Foot x-ray showed osteomyelitis is involving the distal phalanx of the great toe this is on the left foot area and patient admitted to the [facility], consult with Dr. Cooper. Patient is currently on vancomycin and received 1 dose of cefepime in the emergency center. Wound cultures to be obtained. She gives history of having IV antibiotics in 2009, details unknown. 03/26: Patient's doing okay, she has had debridement by Dr. Daniel today, patient remains on vancomycin, intraoperative cultures were done of the left toe patient denies any nausea vomiting, blood sugars is better, within 1 or 7-147 pre-p randials, no fever no chills, CRP is elevated, no new medications from Dr. Cooper. Maintained on IV Vanco REVIEW OF SYSTEMS Constitutional: No fever, no chills, no night sweats. No weight change. No weakness, fatigue or lethargy. No daytime sleepiness. EENT: No headache. No blurred vision or double vision, no loss of vision. No loss of Hearing, no ringing in the ears, no dizziness. No nasal drainage or congestion. No epistaxis. No sore throat. Lungs: No shortness of breath, cough, no sputum production. No wheezing. Cardiovascular: No chest pain, no lower extremity edema. No palpitations. No paroxysmal nocturnal dyspnea. No orthopnea. No lightheadedness or dizziness. No syncopal episodes. Abdominal: No abdominal pain. No nausea, vomiting. No diarrhea. No constipation. No bloody or tarry stools.. No loss of appetite. Genitourinary: No dysuria, increased frequency, urgency. No urinary retention. Musculoskeletal: No myalgias. No muscle weakness, no gait dysfunction, no frequent falls. No back pain. No neck pain. Integumentary: Reported wounds, no lesions. No rash or pruritus. No unusual bruising. No change in hair or nails. Neurologic: No aphasia. No facial droop. No change in mentation. No head injury. No headache. No paralysis. No paresthesia. Psychiatric: No depression. No anxiety. No mood swings. Endocrine: Noted abnormal blood sugars. No weight change. No excessive sweating or thirst. No cold intolerance. Objective - Vital Signs Vital signs: Vital Signs Temp 98.2 F 03/26/21 12:28 Pulse 73 03/26/21 12:28 Resp 17 03/26/21 12:28 BP 134/77 03/26/21 12:28 Pulse Ox 96 03/26/21 12:28 Intake & Output 03/25/21 03/26/21 03/26/21 18:59 06:59 18:59 Intake Total 200 Balance 200 Intake: Oral 200 Other: Voiding Method Toilet Toilet Toilet # Voids 2 1 - Constitutional General appearance: Present: cooperative, no acute distress - EENT Eyes: Present: EOMI, PERRLA, dentition normal - Respiratory Respiratory: bilateral: CTA, negative: diminished - Cardiovascular Rhythm: regular Heart sounds: normal: S1, S2 Abnormal Heart Sounds: Absent: systolic murmur, diastolic murmur, rub, S3 Gallop, S4 Gallop, click, other - Integumentary Integumentary Comment(s): Platelet talk, but also, surgically stress, status post debridement Integumentary: Present: cellulitis, normal - Neurologic Neurologic: Present: CNII-XII intact - Musculoskeletal Musculoskeletal: Present: gait normal - Psychiatric Psychiatric: Present: A&O x's 3, appropriate affect, intact judgment & insight - Labs CBC & Chem 7: 03/25/21 05:44 03/26/21 07:13 Labs: Abnormal Lab Results - Last 24 Hours (Table) 03/25/21 03/25/21 03/25/21 Range/Units 14:42 17:04 21:13 POC Glucose (mg/dL) 109 H 112 H 147 H (75-99) mg/dL C-Reactive Protein (<1.0) mg/dL 03/26/21 03/26/21 03/26/21 Range/Units 07:13 07:26 11:57 POC Glucose (mg/dL) 107 H 139 H (75-99) mg/dL C-Reactive Protein 2.8 H (<1.0) mg/dL Microbiology - Last 24 Hours (Table) 03/24/21 18:51 Blood Culture - Preliminary Blood No Growth after 24 hours Assessment and Plan Plan: 1. Diabetic foot wound to the left great toe with osteomyelitis. For debridement 03/26/2021, with intraoperative cultures, Dr. andujar Consult with wound center for wound care, Dr. Cooper for antibiotics. Patient is currently on vancomycin. Recent wound culture was positive for MSSA. Repeat wound aerobic and anaerobic cultures to be obtained. 2. Diabetes mellitus type 2, uncontrolled with hypoglycemia. Patient's home dose of Levemir decreased to 30 units daily, scheduled NovoLog discontinued and continue NovoLog scale. 3. Hypertension. Continue lisinopril 10 mg daily, Lopressor 25 mg daily. 4. Recurrent depression, schizoaffective disorder. Continue Wellbutrin XL 300 mg daily, clozapine and 25 mg at bedtime. 5. GI prophylaxis. Protonix. 6. DVT prophylaxis. Lovenox subcu. Patient will be admitted to the hospital for a minimum of 2 night stay. DISCHARGE PLAN To be determined. Patient will require IV antibiotics at discharge.
[2021-03-26 17:13] LABS: Glucose,Whole Blood 107 mg/dL (75-99)
--- NOTE | 2021-03-26 19:13 | PN ---
PROGRESS NOTE DATE OF SERVICE: 03/26/2021 REASON FOR FOLLOWUP: Left big toe diabetic foot infection with underlying osteomyelitis. INTERVAL HISTORY: The patient is afebrile. The patient status post debridement of her left big toe wound. The patient tolerated the procedure. Pain is currently controlled. No chest pain, shortness of breath or cough. No abdominal pain or diarrhea. PHYSICAL EXAMINATION: Blood pressure 134/77, pulse of 73, temperature 98.2. She is 92% on room air. General description is a middle-aged female lying in bed in no distress. Respiratory system: Unlabored breathing, clear to auscultation anteriorly. Heart S1, S2. Regular rate and rhythm. Abdomen soft, no tenderness. Left foot is currently dressed, no drainage on the dressing. LABS: Creatinine 0.82. DIAGNOSTIC IMPRESSION AND PLAN: Patient with left big toe wet gangrene and osteomyelitis status post debridement. Culture has been obtained, those will be followed. The patient is covered with vancomycin, to continue while waiting for the culture to finalize and monitor clinical course closely. Continue supportive care. MMODL / IJN: [id number] /
[2021-03-26 20:34] LABS: Glucose,Whole Blood 138 mg/dL (75-99)
[2021-03-26] MEDS: cloZAPine 25 MG TAB PO SCH (21:34)
[2021-03-26] MEDS: lisinopriL 10 MG TAB PO SCH (21:35)
[2021-03-27] MEDS ORDERED: VANCOMYCIN TROUGH DUE 1 EACH MISC MISCELLANE ONE (07:00)
[2021-03-27 07:26] LABS: Glucose,Whole Blood 108 mg/dL (75-99)
[2021-03-27] MEDS: INSULIN ASPART (NovoLOG) 100 UNIT/ML VIAL SQ SCH ×4 (07:28→21:07)
[2021-03-27] MEDS: SODIUM CHLORIDE 0.9% 1,000 ML IV SCH (07:46)
[2021-03-27] MEDS: ENOXAPARIN 40 MG/0.4 ML SYRINGE SQ SCH (08:39)
[2021-03-27] MEDS: COLLAGENASE 250 UNIT/GM OINTMENT 30 GM TUBE TOPICAL SCH (08:39)
[2021-03-27] MEDS: INSULIN DETEMIR (LEVEMIR) 100 UNIT/ML SYR SQ SCH (08:39)
[2021-03-27] MEDS: VANCOMYCIN 1,250 MG in SODIUM CHLORIDE 0.9% 250 ML IVPB SCH ×2 (08:39→21:06)
[2021-03-27] MEDS: ASCORBIC ACID 500 MG TAB PO SCH (08:44)
[2021-03-27] MEDS: CYANOCOBALAMIN 500 MCG TAB PO SCH ×2 (08:44→21:09)
[2021-03-27] MEDS: THIAMINE 100 MG TAB PO SCH (08:44)
[2021-03-27] MEDS: CALCIUM CARBONATE 500 MG CHEWABLE PO SCH ×2 (08:44→21:09)
[2021-03-27] MEDS: MULTIVITAMINS, THERA 1 EACH TAB PO SCH (08:44)
[2021-03-27] MEDS: ETODOLAC 200 MG CAPSULE PO SCH ×2 (08:44→21:09)
[2021-03-27] MEDS: METOPROLOL TARTRATE 25 MG TAB PO SCH (08:44)
[2021-03-27] MEDS: buPROPion XL 300 MG TAB.ER.24H PO SCH (08:45)
[2021-03-27] MEDS: PANTOPRAZOLE 40 MG TABLET PO SCH (08:45)
--- NOTE | 2021-03-27 11:17 | P.PN ---
Progress Note - Text 61-year-old white female, patient had a left big toe debridement done we been doing the local wound care the culture is pending patient is under care of infectious disease today we have changed the dressing we'll start using Santyl cream change her dressing with the Sentell cream daily follow with you
[2021-03-27 11:42] LABS: Glucose,Whole Blood 165 mg/dL (75-99)
--- NOTE | 2021-03-27 13:46 | P.PN ---
Subjective Progress Note Date: 03/27/21 HISTORY OF PRESENT ILLNESS This is a 61-year-old female patient at [facility] with past medical history of diabetes mellitus type 2 insulin requiring, hypertension, depression, schizoaffective disorder. Patient has been following with the wound healing center regarding nonhealing wound to the left foot, diabetic ulcer. Patient states that she has a cast placed on each week and when she went back on she was noted to have had the cast rubbing on her left great toe and she was slowly sent to the emergency center for further evaluation and treatment with concern for osteomyelitis. Patient was found to be afebrile. Vital signs otherwise stable. CBC unremarkable. Electrolytes normal, BUN 33 creatinine 0.89. Blood sugar was 41 lactic acid 1.2. Foot x-ray showed osteomyelitis is involving the distal phalanx of the great toe this is on the left foot area and patient admitted to the [facility], consult with Dr. Cooper. Patient is currently on vancomycin and received 1 dose of cefepime in the emergency center. Wound cultures to be obtained. She gives history of having IV antibiotics in 2009, details unknown. 03/26: Patient's doing okay, she has had debridement by Dr. Daniel today, patient remains on vancomycin, intraoperative cultures were done of the left toe patient denies any nausea vomiting, blood sugars is better, within 1 or 7-147 pre-p randials, no fever no chills, CRP is elevated, no new medications from Dr. Cooper. Maintained on IV Vanco 03/27: Patient had debridement, for which she has granulation tissue healthy looking, on the distal tip of the toe, the size of a quarter. Intraoperative cultures, showing presumptive staph aureus, sensitivities are pending, blood is currently not finalized, awaiting cultures for finalization of PICC line, and IV antibiotics Dr. Cooper following on IV vancomycin, labs to be done in a.m. REVIEW OF SYSTEMS Constitutional: No fever, no chills, no night sweats. No weight change. No weakness, fatigue or lethargy. No daytime sleepiness. EENT: No headache. No blurred vision or double vision, no loss of vision. No loss of Hearing, no ringing in the ears, no dizziness. No nasal drainage or congestion. No epistaxis. No sore throat. Lungs: No shortness of breath, cough, no sputum production. No wheezing. Cardiovascular: No chest pain, no lower extremity edema. No palpitations. No paroxysmal nocturnal dyspnea. No orthopnea. No lightheadedness or dizziness. No syncopal episodes. Abdominal: No abdominal pain. No nausea, vomiting. No diarrhea. No cons tipation. No bloody or tarry stools.. No loss of appetite. Genitourinary: No dysuria, increased frequency, urgency. No urinary retention. Musculoskeletal: No myalgias. No muscle weakness, no gait dysfunction, no frequent falls. No back pain. No neck pain. Integumentary: Reported wounds, no lesions. No rash or pruritus. No unusual bruising. No change in hair or nails. Neurologic: No aphasia. No facial droop. No change in mentation. No head injury. No headache. No paralysis. No paresthesia. Psychiatric: No depression. No anxiety. No mood swings. Endocrine: Noted abnormal blood sugars. No weight change. No excessive sweating or thirst. No cold intolerance. Objective - Vital Signs Vital signs: Vital Signs Temp 97.6 F 03/27/21 11:49 Pulse 69 03/27/21 11:49 Resp 20 03/27/21 11:49 BP 145/80 03/27/21 11:49 Pulse Ox 99 03/27/21 11:49 Intake & Output 03/26/21 03/27/21 03/27/21 18:59 06:59 18:59 Intake Total 740 300 Balance 740 300 Intake: Oral 740 300 Other: Voiding Method Toilet Toilet Toilet # Voids 2 3 - Constitutional General appearance: Present: cooperative, no acute distress - EENT Eyes: Present: EOMI, normal appearance - Respiratory Respiratory: bilateral: CTA, negative: diminished, dullness - Cardiovascular Rhythm: regular Heart sounds: normal: S1, S2 Abnormal Heart Sounds: Absent: systolic murmur, diastolic murmur, rub, S3 Gallop, S4 Gallop, click, other - Integumentary Integumentary: Present: ulcer - Musculoskeletal Musculoskeletal: Present: strength equal bilaterally - Psychiatric Psychiatric: Present: A&O x's 3, appropriate affect - Labs CBC & Chem 7: 03/25/21 05:44 03/26/21 07:13 Labs: Abnormal Lab Results - Last 24 Hours (Table) 03/26/21 03/26/21 03/27/21 Range/Units 17:11 20:27 07:19 POC Glucose (mg/dL) 107 H 138 H 108 H (75-99) mg/dL 03/27/21 Range/Units 11:27 POC Glucose (mg/dL) 165 H (75-99) mg/dL Microbiology - Last 24 Hours (Table) 03/26/21 10:00 Gram Stain - Preliminary Toe - Left First Wound Culture - Preliminary Presumptive Staph aureus 03/24/21 18:51 Blood Culture - Preliminary Blood No Growth after 48 hours 03/26/21 10:00 Anaerobic Culture - Preliminary Toe - Left First Assessment and Plan Plan: 1. Diabetic foot wound to the left great toe with osteomyelitis. For debridement 03/26/2021, with intraoperative cultures, Dr. andujar Consult with wound center for wound care, Dr. Cooper for antibiotics. Patient is currently on vancomycin. Recent wound culture was positive for MSSA. Repeat wound aerobic and anaerobic cultures to be obtained. 2. Diabetes mellitus type 2, uncontrolled with hypoglycemia. Patient's home dose of Levemir decreased to 30 units daily, scheduled NovoLog discontinued and continue NovoLog scale. 3. Hypertension. Continue lisinopril 10 mg daily, Lopressor 25 mg daily. 4. Recurrent depression, schizoaffective disorder. Continue Wellbutrin XL 300 mg daily, clozapine and 25 mg at bedtime. 5. GI prophylaxis. Protonix. 6. DVT prophylaxis. Lovenox subcu. Patient will be admitted to the hospital for a minimum of 2 night stay. DISCHARGE PLAN To be determined. Patient will require IV antibiotics at discharge.
[2021-03-27 17:55] LABS: Glucose,Whole Blood 185 mg/dL (75-99)
[2021-03-27 20:43] VITALS: RESP 18
[2021-03-27 20:55] LABS: Glucose,Whole Blood 146 mg/dL (75-99)
[2021-03-27] MEDS: lisinopriL 10 MG TAB PO SCH (21:09)
[2021-03-27] MEDS: cloZAPine 25 MG TAB PO SCH (21:09)
--- NOTE | 2021-03-28 00:40 | PN ---
PROGRESS NOTE DATE OF SERVICE: 03/27/2021 REASON FOR FOLLOW UP: Left big toe osteomyelitis. INTERVAL HISTORY: The patient is afebrile. The patient is currently breathing comfortably. Denies having any chest pain. No shortness of breath. No abdominal pain. Pain to the left foot debridement site s currently controlled. PHYSICAL EXAMINATION: Blood pressure 123/66, pulse of 71, temperature is 97.5. She is 98% on room air. General description is a middle-aged female up in the bed in no distress. Respiratory system: Unlabored breathing, clear to auscultation anteriorly. Heart S1, S2. Regular rate and rhythm. Abdomen soft, no tenderness. Left big toe debridement site is currently covered, no drainage on the dressing. LABS: Wound culture with Staph aureus. DIAGNOSTIC IMPRESSION AND PLAN: Patient with left big toe diabetic foot ulcer with underlying osteomyelitis, status post debridement, culture with Staph aureus. Sensitivity is pending. Continue with Unasyn and adjust further based on culture and continue supportive care. MMODL / IJN: [id number] /
[2021-03-28 06:11] LABS: HCT 35.3 % (34.0-46.0); HGB 11.7 gm/dL (11.4-16.0); MCV 90.9 fL (80.0-100.0); Mean Platelet Volume 6.1; Platelet Count 410 k/uL (150-450); RBC 3.89 m/uL (3.80-5.40); RDW 14.2 % (11.5-15.5)
[2021-03-28 06:23] LABS: ALT 18 U/L (4-34); AST 23 U/L (14-36); African American GFR (CKD) 74 (>60 ml/min/1.73 sqM); Albumin 3.3 g/dL (3.5-5.0); Alkaline Phosphatase 68 U/L (38-126); Anion Gap 6 mmol/L; Blood Urea Nitrogen 26 mg/dL (7-17); Calcium 9.6 mg/dL (8.4-10.2); Carbon Dioxide 27 mmol/L (22-30); Chloride 106 mmol/L (98-107); Glucose 112 mg/dL (74-99); Non-African American GFR(CKD) 64 (>60 ml/min/1.73 sqM); Sodium 139 mmol/L (137-145); Total Bilirubin <0.1 mg/dL (0.2-1.3); Total Protein 6.1 g/dL (6.3-8.2)
[2021-03-28 06:27] LABS: Glucose,Whole Blood 100 mg/dL (75-99)
[2021-03-28] MEDS: INSULIN ASPART (NovoLOG) 100 UNIT/ML VIAL SQ SCH ×4 (06:31→20:23)
[2021-03-28] MEDS: PANTOPRAZOLE 40 MG TABLET PO SCH (06:33)
[2021-03-28 06:57] LABS: Band Neutrophils % 2 %; Eosinophils # (M) 0.84 k/uL (0-0.7); Lymphocytes # (M) 1.47 k/uL (1.0-4.8); Monocytes # (M) 0.56 k/uL (0-1.0); Neutrophils % (M) 57 %; Nucleated Red Blood Cells 0 /100 WBC (0-0); Total Cells Counted 100
[2021-03-28] MEDS: VANCOMYCIN 1,250 MG in SODIUM CHLORIDE 0.9% 250 ML IVPB SCH (08:34)
[2021-03-28] MEDS: ENOXAPARIN 40 MG/0.4 ML SYRINGE SQ SCH (08:35)
[2021-03-28] MEDS: CALCIUM CARBONATE 500 MG CHEWABLE PO SCH ×2 (08:35→20:23)
[2021-03-28] MEDS: ASCORBIC ACID 500 MG TAB PO SCH (08:35)
[2021-03-28] MEDS: INSULIN DETEMIR (LEVEMIR) 100 UNIT/ML SYR SQ SCH (08:35)
[2021-03-28] MEDS: METOPROLOL TARTRATE 25 MG TAB PO SCH (08:35)
[2021-03-28] MEDS: ETODOLAC 200 MG CAPSULE PO SCH ×2 (08:35→20:23)
[2021-03-28] MEDS: CYANOCOBALAMIN 500 MCG TAB PO SCH ×2 (08:35→20:23)
[2021-03-28] MEDS: THIAMINE 100 MG TAB PO SCH (08:36)
[2021-03-28] MEDS: buPROPion XL 300 MG TAB.ER.24H PO SCH (08:36)
[2021-03-28] MEDS: MULTIVITAMINS, THERA 1 EACH TAB PO SCH (08:36)
[2021-03-28] MEDS: COLLAGENASE 250 UNIT/GM OINTMENT 30 GM TUBE TOPICAL SCH (09:03)
[2021-03-28 11:49] LABS: Glucose,Whole Blood 138 mg/dL (75-99)
--- NOTE | 2021-03-28 11:49 | P.PN ---
Progress Note - Text 61-year-old white female, patient today and left foot big toe wound patient went for debridement underlying osteomyelitis culture is pending patient under care of infectious disease the using Santyl cream daily continue with local wound care using Santyl cream thank you
--- NOTE | 2021-03-28 12:59 | P.PN ---
Subjective Progress Note Date: 03/28/21 HISTORY OF PRESENT ILLNESS This is a 61-year-old female patient at [facility] [address] with past medical history of diabetes mellitus type 2 insulin requiring, hypertension, depression, schizoaffective disorder. Patient has been following with the wound healing center regarding nonhealing wound to the left foot, diabetic ulcer. Patient states that she has a cast placed on each week and when she went back on she was noted to have had the cast rubbing on her left great toe and she was slowly sent to the emergency center for further evaluation and treatment with concern for osteomyelitis. Patient was found to be afebrile. Vital signs otherwise stable. CBC unremarkable. Electrolytes normal, BUN 33 creatinine 0.89. Blood sugar was 41 lactic acid 1.2. Foot x-ray showed osteomyelitis is involving the distal phalanx of the great toe this is on the left foot area and patient admitted to the [facility], consult with Dr. Cooper. Patient is currently on vancomycin and received 1 dose of cefepime in the emergency center. Wound cultures to be obtained. She gives history of having IV antibiotics in 2009, details unknown. 03/26: Patient's doing okay, she has had debridement by Dr. Daniel today, patient remains on vancomycin, intraoperative cultures were done of the left toe patient denies any nausea vomiting, blood sugars is better, within 1 or 7-147 pre-p randials, no fever no chills, CRP is elevated, no new medications from Dr. Cooper. Maintained on IV Vanco 03/27: Patient had debridement, for which she has granulation tissue healthy looking, on the distal tip of the toe, the size of a quarter. Intraoperative cultures, showing presumptive staph aureus, sensitivities are pending, blood is currently not finalized, awaiting cultures for finalization of PICC line, and IV antibiotics Dr. Cooper following on IV vancomycin, labs to be done in a.m. 03/28: Patient's doing okay, no diarrhea no chest pain no fever, no phlebitis in January, when dissipating tomorrow for PICC line placement, orders are made for aortic valve, and most likely home with home antibiotics, ID is following. Cultures are not yet finalized, still growing staph species REVIEW OF SYSTEMS Constitutional: No fever, no chills, no night sweats. No weight change. No weakness, fatigue or lethargy. No daytime sleepiness. EENT: No headache. No blurred vision or double vision, no loss of vision. No loss of Hearing, no ringing in the ears, no dizziness. No nasal drainage or congestion. No epistaxis. No sore throat. Lungs: No shortness of breath, cough, no sputum production. No wheezing. Cardiovascular: No chest pain, no lower extremity edema. No palpitations. No paroxysmal nocturnal dyspnea. No orthopnea. No lightheadedness or dizziness. No syncopal episodes. Abdominal: No abdominal pain. No nausea, vomiting. No diarrhea. No constipation. No bloody or tarry stools.. No loss of appetite. Genitourinary: No dysuria, increased frequency, urgency. No urinary retention. Musculoskeletal: No myalgias. No muscle weakness, no gait dysfunction, no frequent falls. No back pain. No neck pain. Integumentary: Reported wounds, no lesions. No rash or pruritus. No unusual bruising. No change in hair or nails. Neurologic: No aphasia. No facial droop. No change in mentation. No head injury. No headache. No paralysis. No paresthesia. Psychiatric: No depression. No anxiety. No mood swings. Endocrine: Noted abnormal blood sugars. No weight change. No excessive sweating or thirst. No cold intolerance. Objective - Vital Signs Vital signs: Vital Signs Temp 97.6 F 03/28/21 01:57 Pulse 76 03/28/21 08:34 Resp 18 03/28/21 08:34 BP 142/82 03/28/21 08:34 Pulse Ox 98 03/28/21 08:34 Intake & Output 03/27/21 03/28/21 03/28/21 18:59 06:59 18:59 Other: Voiding Method Toilet Toilet # Voids 1 1 1 - Constitutional General appearance: Present: cooperative, no acute distress, obese - EENT Eyes: Present: EOMI, PERRLA, dentition normal ENT: Present: NA/AT, normal oropharynx - Neck Neck: Present: normal ROM - Respiratory Respiratory: bilateral: CTA, negative: diminished, dullness, rales - Cardiovascular Rhythm: regular Abnormal Heart Sounds: Absent: systolic murmur, diastolic murmur, rub, S3 Gallop, S4 Gallop, click, other - Gastrointestinal General gastrointestinal: Present: normal bowel sounds, soft - Integumentary Integumentary: Present: normal, ulcer (Left big toe, quarter size) - Neurologic Neurologic: Present: CNII-XII intact - Musculoskeletal Musculoskeletal: Present: strength equal bilaterally - Psychiatric Psychiatric: Present: A&O x's 3, appropriate affect, intact judgment & insight - Labs CBC & Chem 7: 03/28/21 04:59 03/28/21 04:59 Labs: Abnormal Lab Results - Last 24 Hours (Table) 03/27/21 03/27/21 03/28/21 Range/Units 17:53 20:52 04:59 Eosinophils # (Manual) (0-0.7) k/uL BUN 26 H (7-17) mg/dL Glucose 112 H (74-99) mg/dL POC Glucose (mg/dL) 185 H 146 H (75-99) mg/dL Total Bilirubin <0.1 L (0.2-1.3) mg/dL Total Protein 6.1 L (6.3-8.2) g/dL Albumin 3.3 L (3.5-5.0) g/dL 03/28/21 03/28/21 03/28/21 Range/Units 04:59 06:25 11:47 Eosinophils # (Manual) 0.84 H (0-0.7) k/uL BUN (7-17) mg/dL Glucose (74-99) mg/dL POC Glucose (mg/dL) 100 H 138 H (75-99) mg/dL Total Bilirubin (0.2-1.3) mg/dL Total Protein (6.3-8.2) g/dL Albumin (3.5-5.0) g/dL Microbiology - Last 24 Hours (Table) 03/24/21 18:51 Blood Culture - Preliminary Blood No Growth after 72 hours 03/26/21 10:00 Gram Stain - Preliminary Toe - Left First Wound Culture - Preliminary Presumptive Staph aureus Assessment and Plan Plan: 1. Diabetic foot wound to the left great toe with osteomyelitis. For debridement 03/26/2021, with intraoperative cultures, Dr. andujar Consult with wound center for wound care, Dr. Cooper for antibiotics. Patient is currently on vancomycin. Recent wound culture was positive for MSSA. Repeat wound aerobic and anaerobic cultures to be obtained. Current, cultures staph species presumptive, not yet finalized PICC line to be placed by IR, 02/08/2021 2. Diabetes mellitus type 2, uncontrolled with hypoglycemia. Patient's home dose of Levemir decreased to 30 units daily, scheduled NovoLog discontinued and continue NovoLog scale. 3. Hypertension. Continue lisinopril 10 mg daily, Lopressor 25 mg daily. 4. Recurrent depression, schizoaffective disorder. Continue Wellbutrin XL 300 mg daily, clozapine and 25 mg at bedtime. 5. GI prophylaxis. Protonix. 6. DVT prophylaxis. Lovenox subcu. Patient will be admitted to the hospital for a minimum of 2 night stay. DISCHARGE PLAN To be determined. Patient will require IV antibiotics at discharge.
[2021-03-28 15:53] LABS: Glucose,Whole Blood 132 mg/dL (75-99)
[2021-03-28 20:18] LABS: Glucose,Whole Blood 189 mg/dL (75-99)
[2021-03-28] MEDS: lisinopriL 10 MG TAB PO SCH (20:23)
[2021-03-28] MEDS: cloZAPine 25 MG TAB PO SCH (20:23)
--- NOTE | 2021-03-28 21:42 | PN ---
PROGRESS NOTE DATE OF SERVICE: 03/28/2021 REASON FOR FOLLOWUP: Left big toe osteomyelitis MSSA. INTERVAL HISTORY: The patient is afebrile. The patient is breathing comfortably. Denies having any chest pain, shortness of breath or cough. No nausea or vomiting. No abdominal pain or any worsening pain to the left big toe. PHYSICAL EXAMINATION: Blood pressure 156/84, pulse of 77, temperature 98. She is 98% on room air. GENERAL DESCRIPTION: General description is an elderly female lying in bed in no distress. RESPIRATORY SYSTEM: Unlabored breathing. Clear to auscultation anteriorly. HEART: S1, S2. Regular rate and rhythm. ABDOMEN: Soft. No tenderness. Left big toe is currently dressed. No obvious drainage on the dressing. LABS: Hemoglobin is 11, white count 7.0, BUN of 26, creatinine 0.96. Wound culture with MSSA. DIAGNOSTIC IMPRESSION AND PLAN: Patient with left big toe osteomyelitis. Culture with MSSA. Plan is switch antibiotic to cefazolin 2 grams q.8 hours, PICC line and outpatient IV antibiotics. Local care with Aquacel Silver dressing and close outpatient followup. MMODL / IJN: [id number] /
[2021-03-28] MEDS: SODIUM CHLORIDE 0.9% 1,000 ML IV SCH (23:44)
[2021-03-29 06:29] LABS: Glucose,Whole Blood 111 mg/dL (75-99)
[2021-03-29 06:30] LABS: Prothrombin Time 10.3 sec (9.0-12.0)
[2021-03-29] MEDS: INSULIN ASPART (NovoLOG) 100 UNIT/ML VIAL SQ SCH ×2 (06:55→13:37)
[2021-03-29] MEDS: PANTOPRAZOLE 40 MG TABLET PO SCH (06:55)
[2021-03-29] MEDS ORDERED: VANCOMYCIN TROUGH DUE 1 EACH MISC MISCELLANE ONE (08:00)
[2021-03-29] MEDS: METOPROLOL TARTRATE 25 MG TAB PO SCH (08:09)
[2021-03-29] MEDS: ETODOLAC 200 MG CAPSULE PO SCH (08:09)
[2021-03-29] MEDS: CYANOCOBALAMIN 500 MCG TAB PO SCH (08:10)
[2021-03-29] MEDS: CALCIUM CARBONATE 500 MG CHEWABLE PO SCH (08:10)
[2021-03-29] MEDS: MULTIVITAMINS, THERA 1 EACH TAB PO SCH (08:10)
[2021-03-29] MEDS: ASCORBIC ACID 500 MG TAB PO SCH (08:12)
[2021-03-29] MEDS: INSULIN DETEMIR (LEVEMIR) 100 UNIT/ML SYR SQ SCH (08:12)
[2021-03-29] MEDS: buPROPion XL 300 MG TAB.ER.24H PO SCH (08:13)
[2021-03-29] MEDS: THIAMINE 100 MG TAB PO SCH (08:15)
--- NOTE | 2021-03-29 09:45 | P.DS ---
Providers Date of admission: 03/24/21 19:44 Expected date of discharge: 03/29/21 Attending physician: Hernan Couch Consults: 03/24/21 21:21 Consult Physician Routine Consulting Provider: Mc Cooper Consult Reason/Comments: Osteomyelitis Do you want consulting provider notified?: Yes 03/25/21 22:35 Consult Physician Routine Consulting Provider: Ralph Daniel Consult Reason/Comments: left big toe wound , debridemnt and deep cultures Do you want consulting provider notified?: Yes Primary care physician: [facility] Course: HISTORY OF PRESENT ILLNESS This is a 61-year-old female patient at [facility] with past medical history of diabetes mellitus type 2 insulin requiring, hypertension, depression, schizoaffective disorder. Patient has been following with the wound healing center regarding nonhealing wound to the left foot, diabetic ulcer. Patient states that she has a cast placed on each week and when she went back on she was noted to have had the cast rubbing on her left great toe and she was slowly sent to the emergency center for further evaluation and treatment with concern for osteomyelitis. Patient was found to be afebrile. Vital signs otherwise stable. CBC unremarkable. Electrolytes normal, BUN 33 creatinine 0.89. Blood sugar was 41 lactic acid 1.2. Foot x-ray showed osteomyelitis is involving the distal phalanx of the great toe this is on the left foot area and patient admitted to the [facility] floor, consult with Dr. Cooper. Patient is currently on vancomycin and received 1 dose of cefepime in the emergency center. Wound cultures to be obtained. She gives history of having IV antibiotics in 2009, details unknown. 03/26: Patient's doing okay, she has had debridement by Dr. Daniel today, patient remains on vancomycin, intraoperative cultures were done of the left toe patient denies any nausea vomiting, blood sugars is better, within 1 or 7-147 pre- prandials, no fever no chills, CRP is elevated, no new medications from Dr. Cooper. Maintained on IV Vanco 03/27: Patient had debridement, for which she has granulation tissue healthy looking, on the distal tip of the toe, the size of a quarter. Intraoperative cultures, showing presumptive staph aureus, sensitivities are pending, blood is currently not finalized, awaiting cultures for finalization of PICC line, and IV antibiotics Dr. Cooper following on IV vancomycin, labs to be done in a.m. 03/28: Patient's doing okay, no diarrhea no chest pain no fever, no phlebitis in January, when dissipating tomorrow for PICC line placement, orders are made for aortic valve, and most likely home with home antibiotics, ID is following. Cultures are not yet finalized, still growing staph species 03/29: Patient prepared for discharge home today. Dr. Cooper is recommending salt 2 g every 6 hours and Flagyl for home. PICC line has been ordered. Case management is working with the patient to make all arrangements. Patient will be discharged home once all arrangements have been completed. DISCHARGE DIAGNOSES 1. Diabetic foot wound to the left great toe with osteomyelitis. 2. Diabetes mellitus type 2, uncontrolled with hypoglycemia. 3. Hypertension. 4. Recurrent depression, schizoaffective disorder. DISCHARGE PLAN Home with IV antibiotics Impression and plan of care have been directed as dictated by the signing physician. Shantel Reynoso nurse practitioner acting as scribe for signing physician. Patient Condition at Discharge: Good Plan - Discharge Summary Discharge Rx Participant: No New Discharge Prescriptions: New metroNIDAZOLE [Flagyl] 500 mg PO TID #90 tab Continue Benazepril HCl 10 mg PO HS Insulin Degludec [Tresiba Flextouch U-100 Pen] 40 units SQ DAILY buPROPion HCL [Wellbutrin XL] 300 mg PO DAILY Metoprolol Tartrate 25 mg PO DAILY Diclofenac Sodium [Voltaren] 50 mg PO BID cloZAPine [Clozaril] 25 mg PO HS Insulin Aspart [NovoLOG Flexpen] 5 units SQ DIRECTED PRN PRN Reason: TAKE WITH SNACKS Insulin Aspart [NovoLOG Flexpen] 15 units SQ AC-BRKFST Multivitamins, Thera [Multivitamin (formulary)] 1 tab PO DAILY Calcium Carbonate [Calcium] 600 mg PO BID Cyanocobalamin (Vitamin B-12) [Vitamin B-12] 1,000 mcg PO BID Thiamine HCl [Vitamin B-1] 100 mg PO DAILY Ascorbic Acid [Vitamin C] 1,000 mg PO DAILY Discharge Medication List Benazepril HCl 10 mg PO HS 02/01/17 [History] Diclofenac Sodium [Voltaren] 50 mg PO BID 03/21/19 [History] Insulin Aspart [NovoLOG Flexpen] 5 units SQ DIRECTED PRN 03/21/19 [History] Insulin Aspart [NovoLOG Flexpen] 15 units SQ AC-BRKFST 03/21/19 [History] Insulin Degludec [Tresiba Flextouch U-100 Pen] 40 units SQ DAILY 03/21/19 [History] Metoprolol Tartrate 25 mg PO DAILY 03/21/19 [History] buPROPion HCL [Wellbutrin XL] 300 mg PO DAILY 03/21/19 [History] cloZAPine [Clozaril] 25 mg PO HS 03/21/19 [History] Ascorbic Acid [Vitamin C] 1,000 mg PO DAILY 03/24/21 [History] Calcium Carbonate [Calcium] 600 mg PO BID 03/24/21 [History] Cyanocobalamin (Vitamin B-12) [Vitamin B-12] 1,000 mcg PO BID 03/24/21 [History] Multivitamins, Thera [Multivitamin (formulary)] 1 tab PO DAILY 03/24/21 [History] Thiamine HCl [Vitamin B-1] 100 mg PO DAILY 03/24/21 [History] metroNIDAZOLE [Flagyl] 500 mg PO TID #90 tab 03/29/21 [Rx] Follow up Appointment(s)/Referral(s): [facility], [NON-STAFF] - 1-2 Days MID,Infusion [NON-STAFF] - 1 Week [facility]] - 04/15/21 10:30 am Mc Cooper MD [STAFF PHYSICIAN] - 04/19/21 1:45 pm Patient Instructions/Handouts: Peripherally Inserted Central Catheters and Midline Catheters (DC) Activity/Diet/Wound Care/Special Instructions: Follow up in Wound Center in one week. Discharge Disposition: HOME WITH HOME HEALTH SERVICES
[2021-03-29] MEDS ORDERED: LIDOCAINE 1% INJ 10MG/ML (20 ML MDV) SQ ONE (10:02)
[2021-03-29] MEDS: ENOXAPARIN 40 MG/0.4 ML SYRINGE SQ SCH (10:56)
[2021-03-29] MEDS: COLLAGENASE 250 UNIT/GM OINTMENT 30 GM TUBE TOPICAL SCH (12:00)
[2021-03-29 13:06] LABS: Glucose,Whole Blood 137 mg/dL (75-99)
--- NOTE | 2021-03-29 13:25 | IR ---
PICC LINE PLACEMENT: HISTORY: Infection requiring long-term antibiotic therapy PROCEDURE: Ultrasound and fluoroscopic guidance of PICC line placement. COMPLICATIONS: None ANESTHESIA: 1. 1% Lidocaine locally. FINDINGS/TECHNIQUE: The procedure was explained to the patient. The risks, complications, benefits and alternatives were discussed and any questions were answered. Informed consent was obtained. The patient was placed supine on the fluoroscopic table and prepped and draped in the usual sterile fash ion. Utilizing a 21 gauge needle and sonographic and fluoroscopic guidance, access in the right cep halic vein was achieved and there is placement of a 0.018 guidewire. The vein is patent. A 4-F thorpe th was placed over the guidewire. The guidewire and dilator were removed and a 4-F. PICC line was pl aced through the sheath with the tip at the level of the SVC. The sheath was removed, the catheter w as flushed and sutured into position. The patient was stable throughout the procedure and remained s table upon discharge from the Department of Radiology. The vein puncture was patent under ultrasound. A sanchez scale image was obtained to document patency of the vein punctured. All elements of the maximal barrier technique were utilized. FLUOROSCOPY TIME: 0.2 minutes and 1 images submitted IMPRESSION: Successful PICC line placement under ultrasound and fluoroscopic guidance.
[2021-03-29 14:45] VITALS: BP 112/76; PULSE 94; TEMP 97.5
== END 2021-03-29 15:40 | disposition home health service (06) | DRG 623 ==
LOC: EC 14:40 → 5NMEDONC 19:44 → 6PED 03-27 11:49
PROVIDERS: ADMIT Internal Medicine Geriatric Medicine; ATTEND Internal Medicine Geriatric Medicine
PROC: 0JBR0ZZ Excision of Left Foot Subcutaneous Tissue and Fascia, Open Approach (ICD-10-PCS; principal; 2021-03-26)
PROC: 02HV33Z Insertion of Infusion Device into Superior Vena Cava, Percutaneous Approach (ICD-10-PCS; 2021-03-29)
DX: E11.69 Type 2 diabetes mellitus with other specified complication (principal); E11.52 Type 2 diabetes mellitus with diabetic peripheral angiopathy with gangrene; M86.9 Osteomyelitis, unspecified; F33.9 Major depressive disorder, recurrent, unspecified; E11.621 Type 2 diabetes mellitus with foot ulcer; E11.628 Type 2 diabetes mellitus with other skin complications; E11.649 Type 2 diabetes mellitus with hypoglycemia without coma; F25.9 Schizoaffective disorder, unspecified; I10 Essential (primary) hypertension; Z79.4 Long term (current) use of insulin; Z79.899 Other long term (current) drug therapy; Z79.2 Long term (current) use of antibiotics; Z88.0 Allergy status to penicillin; L97.524 Non-pressure chronic ulcer of other part of left foot with necrosis of bone; L08.9 Local infection of the skin and subcutaneous tissue, unspecified; M19.90 Unspecified osteoarthritis, unspecified site; B95.61 Methicillin susceptible Staphylococcus aureus infection as the cause of diseases classified elsewhere
CPT/HCPCS: 36415; 36573; 80048; 80053; 80202; 82565; 83605; 85025; 85027; 85610; 85652; 86140; 87040; 87070; 87075; 87077; 87186; 87205; 93005; 93922; 99285

== ENCOUNTER → 2021-03-24 | Outpatient (CLI) | payer MEDICARE, OTHER ==
--- NOTE | 2021-04-06 13:48 | P.ARTDOP ---
Arterial Doppler LOWER EXTREMITY ARTERIAL DOPPLER: DATE OF SERVICE: 03/24/2021 Reason for study: Left great toe ulcer. Doppler waveforms: Multiphasic bilaterally throughout. Pulse volume recording: []. Pressure gradients: None significant. Ankle-brachial indices: Greater than 1 bilaterally. Toe brachial indices: 0.78 on the right, [] on the left Impression: Normal study.
== END | disposition home or self-care (01) ==
LOC: RADUSWWP 13:44
PROVIDERS: ATTEND Thoracic Surgery (Cardiothoracic Vascular Surgery)
DX: E11.621 Type 2 diabetes mellitus with foot ulcer (principal); L97.524 Non-pressure chronic ulcer of other part of left foot with necrosis of bone
CPT/HCPCS: 93922

== ENCOUNTER → 2025-01-13 | Outpatient (CLI) | payer MEDICARE, OTHER ==
--- NOTE | 2025-01-13 15:01 | MR ---
EXAMINATION TYPE: MR pancreas / mrcp wo/w con DATE OF EXAM: 01/13/2025 9:19 AM COMPARISON: CT 12/02/2024 CLINICAL INDICATION: Female, 65 years old with history of K86.9,N83.8 DISEASE OF PANCREAS, UNSPECIFIE D; PHH, Abnormal CT, abdomen pain TECHNIQUE MRI ABDOMEN WITH CONTRAST: Multiplanar multi-sequence imaging was performed without and wit h IV contrast/gadolinium. The patient was given 7 cc Gadobutrol gadolinium intravenously and dynamic post-VIBE (volumetric interpolated breath-hold gradient recall echo) imaging was performed. IV Contrast: 7 mL Gadobutrol (None, if empty) TECHNIQUE MRCP ABDOMEN WITHOUT CONTRAST: Multi planar, T2-weighted imaging with and without fat satur ation and chemical shift imaging was performed of the abdomen. Then, heavily T2 weighted imaging (mimi f-Fourier acquisition single-shot turbo spin-echo) was utilized in order to study the biliary system. Maximum intensity projection images were reconstructed from the original data of the biliary tree. 3D reconstructions and MIP imaging performed on a separate workstation. FINDINGS: MRCP: * The intrahepatic ducts have a normal appearance. * The extrahepatic ducts have a normal appearance. * The common hepatic duct measures 5 mm in size. * The common bile duct at the level of the pancreatic head measures 4 mm in size. * The pancreatic duct is normal. * The gallbladder appears unremarkable. Abdomen: Liver: No evidence for hepatic steatosis or cirrhosis. Pancreas: No ductal dilation. No evidence for solid mass. Pancreatic tail cyst measuring up to 10 mm. Pancreatic head cystic lesion measuring 11 x 5 mm. Pancreatic body cyst measuring up to 8 mm. No abn ormal postcontrast enhancement. Spleen: Normal for size. Adrenal glands: Unremarkable. Kidneys: No evidence for obstructive uropathy. No suspicious renal masses. Peripelvic renal cysts gregory aterally. No follow-up recommended. Stomach and Bowel: No evidence for bowel wall thickening or evidence for obstruction. Retroperitoneum/Peritoneum: No evidence of pneumoperitoneum or free fluid. Vasculature: No aortic aneurysm. Musculoskeletal: The osseous structures appear intact. Lymph Nodes: No gross evidence for lymphadenopathy. Abdominal wall: Unremarkable. Limited pelvis demonstrates large left adnexal cystic structure measuring 18 mm. IMPRESSION: 1. Pancreatic cystic lesions possibly representing sequela of prior pancreatitis versus side branch intraductal mucinous neoplasm versus other cystic neoplasms. Attention on follow-up imaging in one ye ar with MRI MRCP with contrast to ensure stability. 2. Large left adnexal cyst measuring up to 8.2 cm correlation with pelvic ultrasound recommended if not already performed. Consider gynecologic consultation for management. 3. No evidence to suggest ductal stricture, choledocholithiasis, or biliary ductal dilatation. [facility], , 01/13/2025 2:59 PM
== END | disposition home or self-care (01) ==
LOC: RADMRIMAIN 08:07
PROVIDERS: ATTEND Internal Medicine Pulmonary Disease
DX: N83.8 Other noninflammatory disorders of ovary, fallopian tube and broad ligament (principal); K86.2 Cyst of pancreas; E27.9 Disorder of adrenal gland, unspecified
CPT/HCPCS: 74183; A9585

== ENCOUNTER → 2025-01-16 | Outpatient (CLI) | payer MEDICARE, OTHER ==
--- NOTE | 2025-01-16 10:41 | MR ---
EXAMINATION TYPE: MR pelvis wo/w con DATE OF EXAM: 01/16/2025 9:09 AM COMPARISON: 12/02/2024.. CLINICAL INDICATION: Female, 65 years old with history of R19.09 OTHER INTRA-ABDOMINAL AND PELVIC SWE LLING,; PHH, Intra abdominal/pelvic swelling. Abnormal CT TECHNIQUE: Triplane multisequence imaging was performed of the pelvis. IV Contrast: 7 mL Gadobutrol FINDINGS: Reproductive: Vagina: Unremarkable. Uterus: Uterus measures 5.9 x 4.7 x 4.6 cm. There is scattered possible fibroids present history low T1 and low T2 signal measuring up tor 3.0 x 2.4 cm.. The endometrium and junctional zone are within n ormal limits. Ovaries: Left adnexal 6.7 x 10.6 x 7.5 cm cyst no abnormal mural enhancement identified on postcontra st imaging.. The right ovary measures 2.1 x 1.3 x 1.8 cm. Bladder: Unremarkable. Bowel: Unremarkable as visualized. The appendix is normal. Few scattered colonic diverticula. Peritoneum: No free fluid or adenopathy. Lymph nodes: No evidence of adenopathy. Vasculature: Unremarkable. Musculoskeletal: Bone marrow signal is within normal signal intensity. Facet joint arthropathy throug hout the visualized spine with mild dextroscoliosis. Abdominal wall/soft tissues: Unremarkable. Renal: Parapelvic renal cyst similar bilateral kidneys versus pelviectasis. No follow-up recommended. IMPRESSION: 1. Large left adnexal simple appearing cyst likely ovarian in etiology.. Measuring up to 10.6 cm [employer] consultation for management recommended. 2. Fibroid uterus. 3. The right ovary is atrophic. [facility], , 01/16/2025 10:38 AM
== END | disposition home or self-care (01) ==
LOC: RADMRIMAIN 07:44
PROVIDERS: ATTEND Internal Medicine Pulmonary Disease
DX: D25.9 Leiomyoma of uterus, unspecified (principal); N83.311 Acquired atrophy of right ovary
CPT/HCPCS: 72197; A9585